=== PATIENT | male | born 1945 | race Caucasian/White ===

== ENCOUNTER 2017-12-08 08:00 | Emergency (ER) | payer MEDICARE ==
[2017-12-08 08:06] VITALS: BP 139/74; PULSE 81; RESP 20; TEMP 98; O2SAT 97; BMI 23.3
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
== END 2017-12-08 09:23 | disposition home or self-care (01) ==
LOC: H.ER 08:00 → EDBD 08:00 → H.ER 09:23
DX: T83.098A Other mechanical complication of other urinary catheter, initial encounter (principal); F41.9 Anxiety disorder, unspecified; I12.9 Hypertensive chronic kidney disease with stage 1 through stage 4 chronic kidney disease, or unspecified chronic kidney disease; N18.9 Chronic kidney disease, unspecified; Z79.82 Long term (current) use of aspirin

== ENCOUNTER 2018-05-06 07:36 | Inpatient (IN) | payer MEDICARE ==
[2018-05-06 07:54] VITALS: BMI 22.9
[2018-05-06] MEDS ORDERED: Sodium Chloride 0.9% 1,000 ML IV STA (08:22)
[2018-05-06 08:44] LABS: BASO # 0.1 K/uL (0.0-0.2); BASO % 0.8 % (0.0-2.0); EOS # 0.1 K/uL (0.0-0.7); EOS % 0.7 % (0.0-4.0); HEMOGLOBIN 14.5 g/dL (12.0-18.0); LYMPH # 1.5 K/uL (1.0-4.3); LYMPH % 9.5 % (20.0-40.0); MEAN CELL VOLUME 89.7 fl (80.0-94.0); MEAN CORPUSCULAR HEMOGLOBIN 30.2 pg (27.0-31.0); MEAN CORPUSCULAR HGB CONC 33.7 g/dL (33.0-37.0); MEAN PLATELET VOLUME 7.8 fl (7.2-11.7); MONO % 6.2 % (0.0-10.0); NEUT # 12.8 K/uL (1.8-7.0); NEUT % 82.8 % (50.0-75.0); PLATELET COUNT 343 K/uL (130-400); RED CELL DISTRIBUTION WIDTH 14.2 % (11.5-14.5); WHITE BLOOD COUNT 15.5 K/uL (4.8-10.8)
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
[2018-05-06 08:55] LABS: INR 1.1 (0.9-1.2); PARTIAL THROMBOPLASTIN TIME 29.4 Seconds (25.6-37.1); PROTHROMBIN TIME 11.9 Seconds (9.8-13.1)
[2018-05-06 08:57] LABS: ALB/GLOB RATIO 1.1 (1.0-2.1); ALT/SGPT 33 U/L (21-72); AST/SGOT 27 U/L (17-59); BLOOD UREA NITROGEN 20 mg/dl (9-20); CALCIUM 9.1 mg/dL (8.4-10.2); GFR AFRICAN-AMERICAN > 60; GFR NON-AFRICAN AMERICAN > 60
[2018-05-06 11:04] LABS: BANDS 2 % (0-2); EOSINOPHIL 1 % (0-7); LYMPHOCYTE 11 % (20-50); MONOCYTE 6 % (0-10); NEUTROPHIL 80 % (42-75); TOTAL CELLS COUNTED 100
[2018-05-06 11:05] LABS: ANISOCYTOSIS SLIGHT; PLATELET ESTIMATE NORMAL (NORMAL)
--- NOTE | 2018-05-06 11:48 | RAD ---
HISTORY: cough COMPARISON: Portable chest 08/30/2008 TECHNIQUE: AP frontal and a sitting cross table lateral view of the chest have been submitted. FINDINGS: LUNGS: No active pulmonary disease. PLEURA: No significant pleural effusion identified. No pneumothorax apparent. CARDIOVASCULAR: Cardiac silhouette appears stable. There is no pulmonary vascular derangement. OSSEOUS STRUCTURES: Calcific density inferior to the left costosternal junction is accentuated due to rotation. VISUALIZED UPPER ABDOMEN: Normal. OTHER FINDINGS: None. IMPRESSION: No interval acute cardiopulmonary disease appreciable.
[2018-05-06] MEDS ORDERED: Aspirin 325 mg EC Tablets PO ONE (13:32)
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
--- NOTE | 2018-05-06 15:59 | CARD ---
APPROVED REPORT EKG Measurement Heart [id number] <Conclusion> Sinus rhythm with frequent premature ventricular complexes Septal infarct, age undetermined T wave abnormality, consider anterolateral ischemia Abnormal ECG
--- NOTE | 2018-05-06 16:05 | CARD ---
APPROVED REPORT EKG Measurement Heart [id number] <Conclusion> Sinus rhythm with occasional premature ventricular complexes Possible Left atrial enlargement Septal infarct, age undetermined Abnormal ECG
[2018-05-06] MEDS ORDERED: Sodium Chloride 3% for Inhalation 4 ML VIAL.NEB IH PRN (17:56)
[2018-05-06] MEDS ORDERED: guaiFENesin 100 mg/5 ml Syrup UD PO PRN (19:00)
[2018-05-06 19:19] LABS: URINE BACTERIA RARE (<OCC); URINE BILIRUBIN NEGATIVE (NEGATIVE); URINE BLOOD SMALL (NEGATIVE); URINE CLARITY CLEAR (Clear); URINE COLOR STRAW (YELLOW); URINE GLUCOSE (UA) NEG (Normal); URINE LEUKOCYTE ESTERASE MOD Leu/uL (Negative); URINE PROTEIN NEGATIVE (NEGATIVE); URINE UROBILINOGEN 0.2-1.0 mg/dL (0.2-1.0)
[2018-05-07 07:36] LABS: BASO % 0.4 % (0.0-2.0); EOS # 0.1 K/uL (0.0-0.7); EOS % 0.5 % (0.0-4.0); HEMOGLOBIN 13.7 g/dL (12.0-18.0); LYMPH # 1.3 K/uL (1.0-4.3); LYMPH % 8.9 % (20.0-40.0); MEAN CELL VOLUME 90.8 fl (80.0-94.0); MEAN CORPUSCULAR HEMOGLOBIN 30.1 pg (27.0-31.0); MEAN CORPUSCULAR HGB CONC 33.2 g/dL (33.0-37.0); MONO % 7.2 % (0.0-10.0); NEUT # 11.7 K/uL (1.8-7.0); RBC 4.55 Mil/uL (4.40-5.90); RED CELL DISTRIBUTION WIDTH 14.2 % (11.5-14.5)
[2018-05-07 07:48] LABS: B-TYPE NATRIURETIC PEPTIDE 868 pg/ml (0-900)
[2018-05-07 07:59] LABS: ALBUMIN 3.4 g/dL (3.5-5.0); ALT/SGPT 30 U/L (21-72); AST/SGOT 44 U/L (17-59); BLOOD UREA NITROGEN 10 mg/dl (9-20); CALCIUM 8.8 mg/dL (8.4-10.2); GFR AFRICAN-AMERICAN > 60; GFR NON-AFRICAN AMERICAN > 60
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
--- NOTE | 2018-05-07 13:18 | CT ---
PROCEDURE: CT Chest without contrast HISTORY: blood tinged sputum, h/o dementia COMPARISON: None. TECHNIQUE: Contiguous axial images were obtained through the chest without intravenous contrast enhancement. Sagittal and coronal reconstructions were performed. Radiation dose (DLP): 212.47 mGy-cm. This CT exam was performed using one or more of the following dose reduction techniques: Automated exposure control, adjustment of the mA and/or kV according to patient size, and/or use of iterative reconstruction technique. FINDINGS: LUNGS: No infiltrate is appreciated. A large calcified granuloma seen the left apex measure 1.8 x 1.4 cm, pleural-based. 4.5 mm calcified granuloma seen the right lower lobe approaching the costophrenic sulcus laterally. Mucoid material is identified the inferior trachea toward the right partially aerated. MEDIASTINUM: Unremarkable thoracic aorta. No aneurysm. Mild cardiomegaly is noted with extensive coronary artery calcifications. Main pulmonary artery unremarkable. No vascular congestion. No lymphadenopathy. PLEURA: No pleural fluid. No pneumothorax. BONES: Old healed posterior left rib fractures at the left 6th, 7th, 8th and 9th ribs. UPPER ABDOMEN: Cholelithiasis. OTHER FINDINGS: None. IMPRESSION: 1. 1.8 cm left upper lobe granuloma is identified as well as a 4.5 mm granuloma in the right lower lobe, both calcified heavily. No additional parenchymal nodule appreciated bilaterally. No significant lymphadenopathy. 2. Limited mucoid material is seen at the inferior trachea toward the right with a small asymmetry at the upper trachea towards the right, appearing bandlike and nonspecific in origin. Consider bronchoscopy for follow-up. 3. No acute infiltrate, pleural or pericardial effusion or pneumothorax bilaterally. 4. Incidental cholelithiasis noted in right upper quadrant abdomen.
[2018-05-08] MEDS ORDERED: oxyCODONE 10 mg Immediate Release Tab PO PRN (01:11)
[2018-05-08] MEDS ORDERED: oxyCODONE 10 mg Immediate Release Tab PO ONE (01:14)
[2018-05-08 07:39] LABS: BASO # 0.1 K/uL (0.0-0.2); BASO % 0.6 % (0.0-2.0); EOS # 0.1 K/uL (0.0-0.7); EOS % 0.6 % (0.0-4.0); HEMOGLOBIN 14.4 g/dL (12.0-18.0); LYMPH % 9.8 % (20.0-40.0); MEAN CELL VOLUME 89.8 fl (80.0-94.0); MEAN CORPUSCULAR HEMOGLOBIN 29.7 pg (27.0-31.0); MEAN PLATELET VOLUME 8.5 fl (7.2-11.7); MONO # 1.3 K/uL (0.0-0.8); MONO % 6.5 % (0.0-10.0); NEUT # 16.8 K/uL (1.8-7.0); NEUT % 82.5 % (50.0-75.0); NRBC % 0.1 % (0.0-0.0); RBC 4.87 Mil/uL (4.40-5.90); RED CELL DISTRIBUTION WIDTH 14.2 % (11.5-14.5); WHITE BLOOD COUNT 20.3 K/uL (4.8-10.8)
[2018-05-08 08:02] LABS: ALBUMIN 3.8 g/dL (3.5-5.0); ALT/SGPT 41 U/L (21-72); AST/SGOT 27 U/L (17-59); BLOOD UREA NITROGEN 21 mg/dl (9-20); CALCIUM 9.1 mg/dL (8.4-10.2); GFR AFRICAN-AMERICAN > 60; GFR NON-AFRICAN AMERICAN > 60
[2018-05-08] MEDS ORDERED: Enoxaparin 40 mg Syringe SC SCH (09:00)
--- NOTE | 2018-05-08 10:32 | RAD ---
PROCEDURE: Radiographs of the Lumbar Spine. HISTORY: back pain, unalleviated by medication COMPARISON: No prior. FINDINGS: BONES: Osteopenia. Normal alignment. No listhesis. No fracture. DISC SPACES: Unremarkable. OTHER FINDINGS: Left lower quadrant ostomy. IMPRESSION: Diffuse osteopenia. No definite tract.
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
[2018-05-08] MEDS ORDERED: Sodium Chloride 0.9% 1,000 ML IV SCH (14:00)
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
[2018-05-08 14:30] LABS: HEMOGLOBIN 12.7 g/dL (12.0-18.0); MEAN CELL VOLUME 89.5 fl (80.0-94.0); MEAN CORPUSCULAR HGB CONC 33.6 g/dL (33.0-37.0); RBC 4.22 Mil/uL (4.40-5.90); RED CELL DISTRIBUTION WIDTH 14.2 % (11.5-14.5); WHITE BLOOD COUNT 20.6 K/uL (4.8-10.8)
[2018-05-08 14:44] LABS: INR 1.2 (0.9-1.2); PARTIAL THROMBOPLASTIN TIME 21.5 Seconds (25.6-37.1); PROTHROMBIN TIME 13.5 Seconds (9.8-13.1)
[2018-05-08 14:45] LABS: ALBUMIN 3.3 g/dL (3.5-5.0); ALT/SGPT 32 U/L (21-72); AST/SGOT 23 U/L (17-59); BLOOD UREA NITROGEN 27 mg/dl (9-20); CALCIUM 8.3 mg/dL (8.4-10.2); GFR AFRICAN-AMERICAN > 60; GFR NON-AFRICAN AMERICAN > 60
[2018-05-08] MEDS: Pantoprazole 40 MG in Sodium Chloride 0.9% 100 ML IVPB SCH ×2 (15:21→20:32)
[2018-05-08] MEDS: Piperacillin/Tazobact 3.375 GM in Sodium Chloride 0.9% 100 ML IVPB SCH ×2 (16:31→22:32)
[2018-05-08] MEDS: levoFLOXacin 500 mg in D5W 500 MG/100 ML BAG IVPB SCH (16:59)
[2018-05-08] MEDS: Potassium Chl 20 mEq in NS 1,000 ML IV SCH (17:38)
--- NOTE | 2018-05-08 18:09 | CP.PCM.PCO ---
Addendum entered and electronically signed by Tess Bermudez MD 05/08/18 18: 51: Pt had another episode of coffee ground emesis, continue to have melena. Zofran ordered. Protonix drip is running, pt is NPO. Repeat labs : CBC, BMP, Procalcitonin and Lactic Acid . Original Note: <Tess Bermudez - Last Filed: 05/08/18 18:51> Addendum Addendum: 05/08/18 18:06 GI consult placed- Dr. Muse, case discussed. Will see patient. Patient sitting upright in bed. Alert. Had 2 more episodes of coffee ground emesis since arrival in ICU. Vital signs are stable. Started on IV Abx - Levaquin and Zosyn due to Leukocytosis and High lactate: 4.5 and possible aspiration. Will Repeat CXR. Repeat Procalcitonin. CBC q6 Repeat Lactate at 20:00. Case d/w Dr. Garay. Await rec's from GI. Aidan PGY2 <Otilia Trent - Last Filed: 05/09/18 07:14> Physician Communication Note - Physician Communication Note Physician Communication Note: Epsisode reported and discussed. Agree with plan.
--- NOTE | 2018-05-08 18:10 | RAD ---
HISTORY: poss aspiration COMPARISON: Chest radiograph dated 05/06/2018. FINDINGS: LUNGS: No active pulmonary disease. PLEURA: No significant pleural effusion identified, no pneumothorax apparent. CARDIOVASCULAR: Atherosclerotic aortic calcifications. Cardiomediastinal silhouette stably prominent. OSSEOUS STRUCTURES: Unchanged. VISUALIZED UPPER ABDOMEN: Normal. OTHER FINDINGS: None. IMPRESSION: No active disease.
[2018-05-08 19:14] LABS: BASO # 0.1 K/uL (0.0-0.2); BASO % 0.3 % (0.0-2.0); EOS % 0.1 % (0.0-4.0); LYMPH % 6.5 % (20.0-40.0); MEAN CELL VOLUME 89.6 fl (80.0-94.0); MEAN CORPUSCULAR HEMOGLOBIN 29.8 pg (27.0-31.0); MEAN CORPUSCULAR HGB CONC 33.3 g/dL (33.0-37.0); MEAN PLATELET VOLUME 7.8 fl (7.2-11.7); MONO # 0.9 K/uL (0.0-0.8); MONO % 5.6 % (0.0-10.0); NEUT % 87.5 % (50.0-75.0); RBC 3.6 Mil/uL (4.40-5.90); RED CELL DISTRIBUTION WIDTH 13.8 % (11.5-14.5); WHITE BLOOD COUNT 15.9 K/uL (4.8-10.8)
[2018-05-08 19:17] LABS: HEMOGLOBIN 10.7 g/dL (12.0-18.0)
[2018-05-08 19:24] LABS: BLOOD UREA NITROGEN 29 mg/dl (9-20); CALCIUM 7.4 mg/dL (8.4-10.2); GFR AFRICAN-AMERICAN > 60; GFR NON-AFRICAN AMERICAN > 60
[2018-05-08] MEDS ORDERED: Trimethobenzamide 200 mg/2 mL Inj IM ONE (20:25)
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
[2018-05-09] MEDS: Pantoprazole 40 MG in Sodium Chloride 0.9% 100 ML IVPB SCH ×5 (01:36→22:42)
[2018-05-09 01:50] LABS: HEMOGLOBIN 10.7 g/dL (12.0-18.0); MEAN CELL VOLUME 90.3 fl (80.0-94.0); MEAN CORPUSCULAR HEMOGLOBIN 29.7 pg (27.0-31.0); MEAN CORPUSCULAR HGB CONC 32.9 g/dL (33.0-37.0); RBC 3.62 Mil/uL (4.40-5.90); WHITE BLOOD COUNT 15.1 K/uL (4.8-10.8)
[2018-05-09] MEDS: Piperacillin/Tazobact 3.375 GM in Sodium Chloride 0.9% 100 ML IVPB SCH ×4 (04:19→21:01)
[2018-05-09] MEDS: Potassium Chl 20 mEq in NS 1,000 ML IV SCH (05:59)
[2018-05-09 06:02] LABS: BASO # 0.1 K/uL (0.0-0.2); BASO % 0.7 % (0.0-2.0); EOS # 0.1 K/uL (0.0-0.7); EOS % 0.7 % (0.0-4.0); HEMOGLOBIN 10.8 g/dL (12.0-18.0); LYMPH # 1.9 K/uL (1.0-4.3); LYMPH % 15.1 % (20.0-40.0); MEAN CELL VOLUME 90.7 fl (80.0-94.0); MEAN CORPUSCULAR HEMOGLOBIN 29.9 pg (27.0-31.0); MEAN PLATELET VOLUME 8.2 fl (7.2-11.7); NEUT # 9.4 K/uL (1.8-7.0); NEUT % 75.5 % (50.0-75.0); NRBC % 0.1 % (0.0-0.0); RBC 3.6 Mil/uL (4.40-5.90); RED CELL DISTRIBUTION WIDTH 14.4 % (11.5-14.5); WHITE BLOOD COUNT 12.5 K/uL (4.8-10.8)
[2018-05-09 06:18] LABS: ALB/GLOB RATIO 0.9 (1.0-2.1); ALBUMIN 2.6 g/dL (3.5-5.0); ALT/SGPT 35 U/L (21-72); AST/SGOT 27 U/L (17-59); BLOOD UREA NITROGEN 30 mg/dl (9-20); CALCIUM 7.5 mg/dL (8.4-10.2); GFR AFRICAN-AMERICAN > 60; GFR NON-AFRICAN AMERICAN > 60
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
[2018-05-09] MEDS: levoFLOXacin 500 mg in D5W 500 MG/100 ML BAG IVPB SCH (08:22)
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
[2018-05-09] MEDS ORDERED: Propofol 10 mg/ml Inj (20 ML) ONE (11:49)
[2018-05-09] MEDS ORDERED: Sodium Chloride 0.9% 250 ML IV ONE (11:57)
[2018-05-09] MEDS: Clindamycin 600mg/50ml D5W 600 MG/50 ML VIAL IVPB SCH (17:39)
[2018-05-09] MEDS ORDERED: Sodium Chloride 0.9% 1,000 ML IV SCH (21:00)
[2018-05-10] MEDS: Clindamycin 600mg/50ml D5W 600 MG/50 ML VIAL IVPB SCH ×3 (00:31→17:36)
[2018-05-10] MEDS: Piperacillin/Tazobact 3.375 GM in Sodium Chloride 0.9% 100 ML IVPB SCH ×4 (03:28→22:20)
[2018-05-10] MEDS: Pantoprazole 40 MG in Sodium Chloride 0.9% 100 ML IVPB SCH ×4 (03:29→20:36)
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
[2018-05-10 05:33] LABS: BASO # 0.1 K/uL (0.0-0.2); BASO % 0.2 % (0.0-2.0); EOS # 0.3 K/uL (0.0-0.7); EOS % 1.1 % (0.0-4.0); HEMOGLOBIN 11.2 g/dL (12.0-18.0); LYMPH # 0.6 K/uL (1.0-4.3); LYMPH % 2.2 % (20.0-40.0); MEAN CELL VOLUME 91.1 fl (80.0-94.0); MEAN CORPUSCULAR HEMOGLOBIN 29.9 pg (27.0-31.0); MEAN CORPUSCULAR HGB CONC 32.8 g/dL (33.0-37.0); MEAN PLATELET VOLUME 8.1 fl (7.2-11.7); MONO % 3.7 % (0.0-10.0); NEUT # 24.3 K/uL (1.8-7.0); NEUT % 92.8 % (50.0-75.0); PLATELET COUNT 287 K/uL (130-400); RBC 3.76 Mil/uL (4.40-5.90); RED CELL DISTRIBUTION WIDTH 14.5 % (11.5-14.5); WHITE BLOOD COUNT 26.2 K/uL (4.8-10.8)
[2018-05-10 05:51] LABS: ALB/GLOB RATIO 0.9 (1.0-2.1); ALT/SGPT 41 U/L (21-72); AST/SGOT 25 U/L (17-59); BLOOD UREA NITROGEN 12 mg/dl (9-20); CALCIUM 8.5 mg/dL (8.4-10.2); GFR AFRICAN-AMERICAN > 60; GFR NON-AFRICAN AMERICAN > 60
[2018-05-10 07:06] LABS: BANDS 1 % (0-2); BASOPHIL 1 % (0-2); EOSINOPHIL 1 % (0-7); LYMPHOCYTE 2 % (20-50); MONOCYTE 2 % (0-10); NEUTROPHIL 93 % (42-75); TOTAL CELLS COUNTED 100
[2018-05-10 07:07] LABS: PLATELET ESTIMATE NORMAL (NORMAL)
[2018-05-10] MEDS: levoFLOXacin 500 mg in D5W 500 MG/100 ML BAG IVPB SCH (08:17)
--- NOTE | 2018-05-10 08:24 | CP.PCM.PN ---
Subjective - Date & Time of Evaluation Date of Evaluation: 05/10/18 Time of Evaluation: 08:20 - Subjective Subjective: Awake and comfortable. no overt bleeding. Objective - Vital Signs/Intake and Output Vital Signs (last 24 hours): Temp Pulse Resp BP Pulse Ox 97.7 F 96 H 24 100/53 L 99 05/10/18 04:00 05/10/18 06:00 05/10/18 06:00 05/10/18 06:00 05/10/18 06:00 Intake and Output: 05/10/18 05/10/18 06:59 18:59 Intake Total 1530 Output Total 3800 Balance -2270 - Medications Medications: Current Medications Acetaminophen (Tylenol 650 Mg Supp) 650 mg [place] Q6 PRN PRN Reason: Fever >100.4 F Pantoprazole Sodium 40 mg/ (Sodium Chloride) 100 mls @ 20 mls/hr IVPB Q5H KALYANI PRN Reason: 8 MG/HR Last Admin: 05/10/18 03:29 Dose: 20 mls/hr Piperacillin Sod/Tazobactam (Sod 3.375 gm/ Sodium Chloride) 100 mls @ 100 mls/ hr IVPB Q6 KALYANI PRN Reason: Protocol Last Admin: 05/10/18 03:28 Dose: 100 mls/hr Levofloxacin/Dextrose (Levaquin 500mg) 500 mg in 100 mls @ 100 mls/hr IVPB DAILY KALYANI PRN Reason: Protocol Last Admin: 05/10/18 08:17 Dose: 100 mls/hr Clindamycin Phosphate (Cleocin) 600 mg in 50 mls @ 50 mls/hr IVPB Q8 KALYANI PRN Reason: Protocol Last Admin: 05/10/18 08:16 Dose: 50 mls/hr Ondansetron HCl (Zofran Inj) 4 mg IVP Q4 PRN PRN Reason: Nausea/Vomiting Last Admin: 05/08/18 18:51 Dose: 4 mg - Labs Labs: 05/10/18 04:45 05/10/18 04:45 PT 13.5 Seconds (9.8-13.1) H 05/08/18 14:15 INR 1.2 (0.9-1.2) 05/08/18 14:15 APTT 21.5 Seconds (25.6-37.1) L D 05/08/18 14:15 - Head Exam Head Exam: ATRAUMATIC - Eye Exam Eye Exam: Normal appearance - Neck Exam Neck Exam: Full ROM - Respiratory Exam Respiratory Exam: NORMAL BREATHING PATTERN - Cardiovascular Exam Cardiovascular Exam: REGULAR RHYTHM - GI/Abdominal Exam GI & Abdominal Exam: Soft, Normal Bowel Sounds. absent: Tenderness Assessment and Plan (1) GI bleeding Assessment & Plan: No active bleeding currently. Will advance to full liquids. Maintain current pantoprazole infusion. Follow Hgb and clinically for evidence of bleeding. Status: Acute
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
--- NOTE | 2018-05-10 10:33 | CP.PCM.PN ---
Subjective - Date & Time of Evaluation Date of Evaluation: 05/10/18 Time of Evaluation: 10:29 - Subjective Subjective: Interim events reviewed in the EMR. Presently lying in bed, complaining of pain in his feet. No further coughing, no SOB, no chest discomfort. Discussed findings on the CT scan with his niece who is his POA. Plan for flexible bronchoscopy later this week to evaluate the airways abnormalities seen on CT. Consent has been obtained after explaining the reason for the procedure and the possible complications. Objective - Vital Signs/Intake and Output Vital Signs (last 24 hours): Temp Pulse Resp BP Pulse Ox 98.2 F 99 H 28 H 94/54 L 100 05/10/18 08:00 05/10/18 10:00 05/10/18 10:00 05/10/18 10:00 05/10/18 10:00 Intake and Output: 05/09/18 05/10/18 23:59 11:59 Intake Total 19890 Output Total 1550 3800 Balance 440 -1720 - Medications Medications: Current Medications Acetaminophen (Tylenol 650 Mg Supp) 650 mg [place] Q6 PRN PRN Reason: Fever >100.4 F Pantoprazole Sodium 40 mg/ (Sodium Chloride) 100 mls @ 20 mls/hr IVPB Q5H KALYANI PRN Reason: 8 MG/HR Last Admin: 05/10/18 03:29 Dose: 20 mls/hr Piperacillin Sod/Tazobactam (Sod 3.375 gm/ Sodium Chloride) 100 mls @ 100 mls/ hr IVPB Q6 KALYANI PRN Reason: Protocol Last Admin: 05/10/18 09:05 Dose: 100 mls/hr Levofloxacin/Dextrose (Levaquin 500mg) 500 mg in 100 mls @ 100 mls/hr IVPB DAILY KALYANI PRN Reason: Protocol Last Admin: 05/10/18 08:17 Dose: 100 mls/hr Clindamycin Phosphate (Cleocin) 600 mg in 50 mls @ 50 mls/hr IVPB Q8 KALYANI PRN Reason: Protocol Last Admin: 05/10/18 08:16 Dose: 50 mls/hr Ondansetron HCl (Zofran Inj) 4 mg IVP Q4 PRN PRN Reason: Nausea/Vomiting Last Admin: 05/08/18 18:51 Dose: 4 mg - Labs Labs: 05/10/18 04:45 05/10/18 04:45 PT 13.5 Seconds (9.8-13.1) H 05/08/18 14:15 INR 1.2 (0.9-1.2) 05/08/18 14:15 APTT 21.5 Seconds (25.6-37.1) L D 05/08/18 14:15
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
[2018-05-11] MEDS: Clindamycin 600mg/50ml D5W 600 MG/50 ML VIAL IVPB SCH ×3 (00:05→18:20)
[2018-05-11] MEDS: Pantoprazole 40 MG in Sodium Chloride 0.9% 100 ML IVPB SCH ×2 (01:07→06:17)
[2018-05-11] MEDS: Piperacillin/Tazobact 3.375 GM in Sodium Chloride 0.9% 100 ML IVPB SCH ×4 (03:38→21:32)
--- NOTE | 2018-05-11 08:40 | CP.PCM.PN ---
Subjective - Date & Time of Evaluation Date of Evaluation: 05/11/18 Time of Evaluation: 08:37 - Subjective Subjective: Patient is awake and alert. No evidence of bleeding. Objective - Vital Signs/Intake and Output Vital Signs (last 24 hours): Temp Pulse Resp BP Pulse Ox 98.4 F 73 18 94/55 L 98 05/11/18 08:32 05/11/18 08:32 05/11/18 08:32 05/11/18 08:32 05/11/18 08:32 Intake and Output: 05/11/18 05/11/18 06:59 18:59 Intake Total 150 Balance 150 - Medications Medications: Current Medications Acetaminophen (Tylenol 650 Mg Supp) 650 mg [place] Q6 PRN PRN Reason: Fever >100.4 F Piperacillin Sod/Tazobactam (Sod 3.375 gm/ Sodium Chloride) 100 mls @ 100 mls/ hr IVPB Q6 KALYANI PRN Reason: Protocol Last Admin: 05/11/18 03:38 Dose: 100 mls/hr Clindamycin Phosphate (Cleocin) 600 mg in 50 mls @ 50 mls/hr IVPB Q8 KALYANI PRN Reason: Protocol Last Admin: 05/11/18 00:05 Dose: 50 mls/hr Sodium Chloride (Sodium Chloride 0.9%) 1,000 mls @ 100 mls/hr IV .Q10H [facility] Stop: 05/12/18 08:14 Ondansetron HCl (Zofran Inj) 4 mg IVP Q4 PRN PRN Reason: Nausea/Vomiting Last Admin: 05/08/18 18:51 Dose: 4 mg Pantoprazole Sodium (Protonix Inj) 40 mg IVP BID KALYANI - Labs Labs: 05/10/18 04:45 05/10/18 04:45 PT 13.5 Seconds (9.8-13.1) H 05/08/18 14:15 INR 1.2 (0.9-1.2) 05/08/18 14:15 APTT 21.5 Seconds (25.6-37.1) L D 05/08/18 14:15 - Head Exam Head Exam: ATRAUMATIC - Eye Exam Eye Exam: Normal appearance - ENT Exam ENT Exam: Normal Exam - Neck Exam Neck Exam: Full ROM - Respiratory Exam Respiratory Exam: NORMAL BREATHING PATTERN - Cardiovascular Exam Cardiovascular Exam: REGULAR RHYTHM, +S1, +S2 - GI/Abdominal Exam GI & Abdominal Exam: Soft. absent: Tenderness Assessment and Plan (1) GI bleeding Assessment & Plan: Clinically doing well from GI perspective with no evidence of bleeding. CBC from today not yet available. Pantoprazole changed to 40 mg IV BID. Advanced to soft diet. Status: Acute
--- NOTE | 2018-05-11 09:00 | CP.PCM.PN ---
Subjective - Date & Time of Evaluation Date of Evaluation: 05/11/18 Time of Evaluation: 08:56 - Subjective Subjective: Preceeding note from GI reviewed. Case discussed with GI this morning. Vital signs are okay, remains afebrile. Abrupt increase in WBC to 26 this morning. Able to follow simple commands, dry cough when prompted. No dyspnea or cough noted. Breath sounds are present bilaterally, diminished. Slight harsh character to BS in LLL posteriorly. No audible wheezes, few scattered rhonchi. Heart sounds are distant, regular rhythm. Chest x-ray requested for this morning. Tentative for [facility] Wednesday morning. Objective - Vital Signs/Intake and Output Vital Signs (last 24 hours): Temp Pulse Resp BP Pulse Ox 98.4 F 73 18 94/55 L 98 05/11/18 08:32 05/11/18 08:32 05/11/18 08:32 05/11/18 08:32 05/11/18 08:32 Intake and Output: 05/10/18 05/11/18 23:59 11:59 Intake Total 700 50 Output Total 200 Balance 500 50 - Medications Medications: Current Medications Acetaminophen (Tylenol 650 Mg Supp) 650 mg [place] Q6 PRN PRN Reason: Fever >100.4 F Piperacillin Sod/Tazobactam (Sod 3.375 gm/ Sodium Chloride) 100 mls @ 100 mls/ hr IVPB Q6 KALYANI PRN Reason: Protocol Last Admin: 05/11/18 03:38 Dose: 100 mls/hr Clindamycin Phosphate (Cleocin) 600 mg in 50 mls @ 50 mls/hr IVPB Q8 KALYANI PRN Reason: Protocol Last Admin: 05/11/18 00:05 Dose: 50 mls/hr Sodium Chloride (Sodium Chloride 0.9%) 1,000 mls @ 100 mls/hr IV .Q10H KALYANI Stop: 05/12/18 08:14 Ondansetron HCl (Zofran Inj) 4 mg IVP Q4 PRN PRN Reason: Nausea/Vomiting Last Admin: 05/08/18 18:51 Dose: 4 mg Pantoprazole Sodium (Protonix Inj) 40 mg IVP BID KALYANI - Labs Labs: 05/10/18 04:45 05/10/18 04:45 PT 13.5 Seconds (9.8-13.1) H 05/08/18 14:15 INR 1.2 (0.9-1.2) 05/08/18 14:15 APTT 21.5 Seconds (25.6-37.1) L D 05/08/18 14:15
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
[2018-05-11] MEDS: Sodium Chloride 0.9% 1,000 ML IV SCH (10:04)
--- NOTE | 2018-05-11 13:27 | RAD ---
HISTORY: cough COMPARISON: Chest radiograph dated 05/08/2018. FINDINGS: LUNGS: No active pulmonary disease. Small right basilar calcified granuloma redemonstrated. PLEURA: No significant pleural effusion identified, no pneumothorax apparent. CARDIOVASCULAR: Atherosclerotic aortic calcifications. Cardiomediastinal silhouette stably prominent. OSSEOUS STRUCTURES: Changed. VISUALIZED UPPER ABDOMEN: Normal. OTHER FINDINGS: None. IMPRESSION: No active disease.
[2018-05-12] MEDS: Clindamycin 600mg/50ml D5W 600 MG/50 ML VIAL IVPB SCH ×3 (00:16→18:09)
[2018-05-12] MEDS: Piperacillin/Tazobact 3.375 GM in Sodium Chloride 0.9% 100 ML IVPB SCH ×4 (04:35→22:45)
[2018-05-12] MEDS: Sodium Chloride 0.9% 1,000 ML IV SCH (04:36)
[2018-05-12] MEDS ORDERED: Oxycodone/Acetaminophen 5/325 mg Tab PO PRN (07:45)
[2018-05-12 09:15] LABS: BASO # 0.1 K/uL (0.0-0.2); BASO % 0.4 % (0.0-2.0); EOS # 0.4 K/uL (0.0-0.7); EOS % 2.4 % (0.0-4.0); HEMOGLOBIN 9.4 g/dL (12.0-18.0); LYMPH # 1.4 K/uL (1.0-4.3); LYMPH % 8.1 % (20.0-40.0); MEAN CELL VOLUME 89.5 fl (80.0-94.0); MEAN CORPUSCULAR HEMOGLOBIN 30.3 pg (27.0-31.0); MEAN CORPUSCULAR HGB CONC 33.8 g/dL (33.0-37.0); MEAN PLATELET VOLUME 7.4 fl (7.2-11.7); MONO # 1.1 K/uL (0.0-0.8); MONO % 6.6 % (0.0-10.0); NEUT # 14.2 K/uL (1.8-7.0); NEUT % 82.5 % (50.0-75.0); RBC 3.11 Mil/uL (4.40-5.90); RED CELL DISTRIBUTION WIDTH 14.6 % (11.5-14.5); WHITE BLOOD COUNT 17.2 K/uL (4.8-10.8)
[2018-05-12 09:40] LABS: ALB/GLOB RATIO 0.9 (1.0-2.1); ALBUMIN 2.7 g/dL (3.5-5.0); ALT/SGPT 30 U/L (21-72); AST/SGOT 21 U/L (17-59); BLOOD UREA NITROGEN 7 mg/dl (9-20); CALCIUM 7.6 mg/dL (8.4-10.2); GFR AFRICAN-AMERICAN > 60; GFR NON-AFRICAN AMERICAN > 60
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
--- NOTE | 2018-05-12 14:54 | CP.PCM.PN ---
Subjective - Date & Time of Evaluation Date of Evaluation: 05/12/18 Time of Evaluation: 14:52 - Subjective Subjective: Patient is scheduled for flexible bronchoscopy tomorrow AM. Consent has already been signed by PODylon and is in the paper chart. He has remained asymptomatic w/o any cough or SOB. Objective - Vital Signs/Intake and Output Vital Signs (last 24 hours): Temp Pulse Resp BP Pulse Ox 97.9 F 78 18 123/69 99 05/12/18 08:20 05/12/18 08:20 05/12/18 08:20 05/12/18 08:20 05/12/18 08:20 - Medications Medications: Current Medications Acetaminophen (Tylenol 650 Mg Supp) 650 mg [place] Q6 PRN PRN Reason: Fever >100.4 F Piperacillin Sod/Tazobactam (Sod 3.375 gm/ Sodium Chloride) 100 mls @ 100 mls/ hr IVPB Q6 KALYANI PRN Reason: Protocol Last Admin: 05/12/18 09:34 Dose: 100 mls/hr Clindamycin Phosphate (Cleocin) 600 mg in 50 mls @ 50 mls/hr IVPB Q8 KALYANI PRN Reason: Protocol Last Admin: 05/12/18 09:34 Dose: 50 mls/hr Ondansetron HCl (Zofran Inj) 4 mg IVP Q4 PRN PRN Reason: Nausea/Vomiting Last Admin: 05/08/18 18:51 Dose: 4 mg Oxycodone/Acetaminophen (Percocet 5/325 Mg Tab) 1 tab PO Q6 PRN PRN Reason: Pain, severe (8-10) Stop: 05/13/18 07:46 Pantoprazole Sodium (Protonix Inj) 40 mg IVP BID [facility] Last Admin: 05/12/18 09:35 Dose: 40 mg - Labs Labs: 05/12/18 09:00 05/12/18 09:00 PT 13.5 Seconds (9.8-13.1) H 05/08/18 14:15 INR 1.2 (0.9-1.2) 05/08/18 14:15 APTT 21.5 Seconds (25.6-37.1) L D 05/08/18 14:15
--- NOTE | 2018-05-12 20:36 | CP.PCM.PN ---
Subjective - Date & Time of Evaluation Date of Evaluation: 05/12/18 Time of Evaluation: 14:00 - Subjective Subjective: Patient appears comfortable. No complaints. Objective - Vital Signs/Intake and Output Vital Signs (last 24 hours): Temp Pulse Resp BP Pulse Ox 97.7 F 76 20 114/59 L 98 05/12/18 16:49 05/12/18 16:49 05/12/18 16:49 05/12/18 16:49 05/12/18 16:49 - Medications Medications: Current Medications Acetaminophen (Tylenol 650 Mg Supp) 650 mg [place] Q6 PRN PRN Reason: Fever >100.4 F Piperacillin Sod/Tazobactam (Sod 3.375 gm/ Sodium Chloride) 100 mls @ 100 mls/ hr IVPB Q6 KALYANI PRN Reason: Protocol Last Admin: 05/12/18 18:09 Dose: 100 mls/hr Clindamycin Phosphate (Cleocin) 600 mg in 50 mls @ 50 mls/hr IVPB Q8 KALYANI PRN Reason: Protocol Last Admin: 05/12/18 18:09 Dose: 50 mls/hr Ondansetron HCl (Zofran Inj) 4 mg IVP Q4 PRN PRN Reason: Nausea/Vomiting Last Admin: 05/08/18 18:51 Dose: 4 mg Oxycodone/Acetaminophen (Percocet 5/325 Mg Tab) 1 tab PO Q6 PRN PRN Reason: Pain, severe (8-10) Stop: 05/13/18 07:46 Pantoprazole Sodium (Protonix Inj) 40 mg IVP BID [facility] Last Admin: 05/12/18 18:21 Dose: 40 mg - Labs Labs: 05/12/18 09:00 05/12/18 09:00 PT 13.5 Seconds (9.8-13.1) H 05/08/18 14:15 INR 1.2 (0.9-1.2) 05/08/18 14:15 APTT 21.5 Seconds (25.6-37.1) L D 05/08/18 14:15 - Head Exam Head Exam: ATRAUMATIC - Neck Exam Neck Exam: Full ROM - Respiratory Exam Respiratory Exam: Clear to Ausculation Bilateral - Cardiovascular Exam Cardiovascular Exam: REGULAR RHYTHM - GI/Abdominal Exam GI & Abdominal Exam: Soft. absent: Tenderness Assessment and Plan (1) GI bleeding Assessment & Plan: No overt bleeding. Hgb is 9.4. WBC has declined to 17k. Continue IV protonix. Upper endoscopy Wednesday. Status: Acute
[2018-05-13] MEDS: Clindamycin 600mg/50ml D5W 600 MG/50 ML VIAL IVPB SCH ×3 (01:14→17:36)
[2018-05-13] MEDS: Piperacillin/Tazobact 3.375 GM in Sodium Chloride 0.9% 100 ML IVPB SCH ×4 (04:03→21:30)
[2018-05-13] MEDS ORDERED: Potassium Chl 40 mEq in D5-1/2 1,000 ML IV SCH (07:45)
[2018-05-13] MEDS ORDERED: Sodium Bicarbonate 7.5% (0.9 MEQ/ML) 50ML INJ IV ONE (07:47)
[2018-05-13] MEDS ORDERED: Potassium Chloride 20 mEq 100 ML IVPB ONE (07:48)
[2018-05-13] MEDS: Potassium Chloride 20 mEq 100 ML IVPB SCH ×2 (08:00→10:20)
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
[2018-05-13 10:17] LABS: BLOOD UREA NITROGEN 6 mg/dl (9-20); CALCIUM 7.8 mg/dL (8.4-10.2); GFR AFRICAN-AMERICAN > 60; GFR NON-AFRICAN AMERICAN > 60
[2018-05-13] MEDS ORDERED: Lidocaine 1% Inj (20ml) TP ONE (11:25)
[2018-05-13] MEDS ORDERED: Lactated Ringer's 500 ML IV ONE (11:25)
[2018-05-13] MEDS ORDERED: Midazolam 2 MG/2 ML VIAL ONE (11:26)
[2018-05-13] MEDS ORDERED: Propofol 10 mg/ml Inj (20 ML) ONE (11:26)
[2018-05-13] MEDS ORDERED: EPINEPHrine 1 mg/ml (1:1000) Inj IV ONE (11:40)
[2018-05-13] MEDS ORDERED: Lidocaine 2% GEL TOP ONE (11:40)
[2018-05-13] MEDS ORDERED: Sodium Chloride 0.9% 1,000 ML IV ONE (12:00)
[2018-05-13 14:54] LABS: HEMOGLOBIN 10.2 g/dL (12.0-18.0); MEAN CELL VOLUME 89.5 fl (80.0-94.0); MEAN CORPUSCULAR HEMOGLOBIN 29.6 pg (27.0-31.0); MEAN CORPUSCULAR HGB CONC 33.1 g/dL (33.0-37.0); RBC 3.45 Mil/uL (4.40-5.90); RED CELL DISTRIBUTION WIDTH 14.7 % (11.5-14.5); WHITE BLOOD COUNT 15.4 K/uL (4.8-10.8)
[2018-05-13 15:07] LABS: BLOOD UREA NITROGEN 5 mg/dl (9-20); CALCIUM 8.2 mg/dL (8.4-10.2); GFR AFRICAN-AMERICAN > 60; GFR NON-AFRICAN AMERICAN > 60
[2018-05-13 15:57] LABS: INR 1.2 (0.9-1.2); PARTIAL THROMBOPLASTIN TIME 26.9 Seconds (25.6-37.1); PROTHROMBIN TIME 13.6 Seconds (9.8-13.1)
[2018-05-14] MEDS: Clindamycin 600mg/50ml D5W 600 MG/50 ML VIAL IVPB SCH ×3 (00:22→16:56)
[2018-05-14] MEDS: Oxycodone/Acetaminophen 5/325 mg Tab PO PRN (01:23)
[2018-05-14] MEDS: Piperacillin/Tazobact 3.375 GM in Sodium Chloride 0.9% 100 ML IVPB SCH ×4 (04:38→22:23)
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
[2018-05-14 16:03] LABS: BASO # 0.1 K/uL (0.0-0.2); BASO % 0.5 % (0.0-2.0); EOS # 0.5 K/uL (0.0-0.7); EOS % 3.5 % (0.0-4.0); HEMOGLOBIN 9.8 g/dL (12.0-18.0); LYMPH # 1.8 K/uL (1.0-4.3); LYMPH % 13.5 % (20.0-40.0); MEAN CELL VOLUME 89.3 fl (80.0-94.0); MEAN CORPUSCULAR HEMOGLOBIN 29.7 pg (27.0-31.0); MEAN CORPUSCULAR HGB CONC 33.2 g/dL (33.0-37.0); MEAN PLATELET VOLUME 7.5 fl (7.2-11.7); MONO # 1.3 K/uL (0.0-0.8); MONO % 9.4 % (0.0-10.0); NEUT # 9.8 K/uL (1.8-7.0); NEUT % 73.1 % (50.0-75.0); RBC 3.3 Mil/uL (4.40-5.90); RED CELL DISTRIBUTION WIDTH 14.3 % (11.5-14.5); WHITE BLOOD COUNT 13.4 K/uL (4.8-10.8)
[2018-05-14 16:16] LABS: ALBUMIN 3.1 g/dL (3.5-5.0); ALT/SGPT 30 U/L (21-72); AST/SGOT 19 U/L (17-59); BLOOD UREA NITROGEN 9 mg/dl (9-20); GFR AFRICAN-AMERICAN > 60; GFR NON-AFRICAN AMERICAN > 60
[2018-05-14] MEDS ORDERED: Potassium CL 10 MEQ/50 ML 50 ML IVPB SCH (17:00)
[2018-05-14] MEDS: Potassium Chloride 20 mEq ER Tab PO SCH (17:02)
[2018-05-15] MEDS: Clindamycin 600mg/50ml D5W 600 MG/50 ML VIAL IVPB SCH ×3 (00:06→16:05)
[2018-05-15] MEDS: Piperacillin/Tazobact 3.375 GM in Sodium Chloride 0.9% 100 ML IVPB SCH ×4 (04:31→22:03)
[2018-05-15 07:02] LABS: BASO # 0.1 K/uL (0.0-0.2); BASO % 0.8 % (0.0-2.0); EOS # 0.5 K/uL (0.0-0.7); EOS % 3.8 % (0.0-4.0); HEMOGLOBIN 10.3 g/dL (12.0-18.0); LYMPH % 14.5 % (20.0-40.0); MEAN CELL VOLUME 89.5 fl (80.0-94.0); MEAN CORPUSCULAR HEMOGLOBIN 29.7 pg (27.0-31.0); MEAN CORPUSCULAR HGB CONC 33.1 g/dL (33.0-37.0); MONO # 1.3 K/uL (0.0-0.8); MONO % 9.5 % (0.0-10.0); NEUT % 71.4 % (50.0-75.0); NRBC % 0.1 % (0.0-0.0); RBC 3.46 Mil/uL (4.40-5.90); RED CELL DISTRIBUTION WIDTH 14.7 % (11.5-14.5)
[2018-05-15 07:23] LABS: ALBUMIN 3.1 g/dL (3.5-5.0); ALT/SGPT 30 U/L (21-72); AST/SGOT 22 U/L (17-59); BLOOD UREA NITROGEN 8 mg/dl (9-20); CALCIUM 8.4 mg/dL (8.4-10.2); GFR AFRICAN-AMERICAN > 60; GFR NON-AFRICAN AMERICAN > 60
[2018-05-15] MEDS: Potassium Chloride 20 mEq ER Tab PO SCH (08:57)
[2018-05-15] MEDS: Oxycodone/Acetaminophen 5/325 mg Tab PO PRN ×2 (11:14→20:50)
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
[2018-05-15] MEDS ORDERED: Sodium Chloride 0.9% 1,000 ML IV SCH (23:55)
[2018-05-16] MEDS: Clindamycin 600mg/50ml D5W 600 MG/50 ML VIAL IVPB SCH ×2 (00:10→08:56)
[2018-05-16] MEDS: Piperacillin/Tazobact 3.375 GM in Sodium Chloride 0.9% 100 ML IVPB SCH ×2 (04:03→10:28)
[2018-05-16 06:14] LABS: BASO # 0.1 K/uL (0.0-0.2); BASO % 0.9 % (0.0-2.0); EOS # 0.7 K/uL (0.0-0.7); EOS % 5.3 % (0.0-4.0); HEMOGLOBIN 10.3 g/dL (12.0-18.0); LYMPH # 2.1 K/uL (1.0-4.3); LYMPH % 17.2 % (20.0-40.0); MEAN CELL VOLUME 89.5 fl (80.0-94.0); MEAN CORPUSCULAR HEMOGLOBIN 29.9 pg (27.0-31.0); MEAN CORPUSCULAR HGB CONC 33.4 g/dL (33.0-37.0); MEAN PLATELET VOLUME 7.4 fl (7.2-11.7); MONO # 1.5 K/uL (0.0-0.8); NEUT # 8.1 K/uL (1.8-7.0); NEUT % 64.6 % (50.0-75.0); RBC 3.43 Mil/uL (4.40-5.90); RED CELL DISTRIBUTION WIDTH 14.4 % (11.5-14.5); WHITE BLOOD COUNT 12.5 K/uL (4.8-10.8)
[2018-05-16 06:21] LABS: BLOOD UREA NITROGEN 11 mg/dl (9-20); CALCIUM 8.2 mg/dL (8.4-10.2); GFR AFRICAN-AMERICAN > 60; GFR NON-AFRICAN AMERICAN > 60
--- NOTE | 2018-05-16 09:14 | RAD ---
HISTORY: hemoptysis COMPARISON: Portable chest 05/11/[address] 05/07/2018. FINDINGS: LUNGS: No active pulmonary disease. Small calcified granuloma is again seen the right lower lobe laterally. Medial left apical nodule not appreciated in the current exam but seen in prior chest CT 05/07/2018. Please see separate report. PLEURA: No significant pleural effusion identified, no pneumothorax apparent. CARDIOVASCULAR: Cardiomediastinal side appears stable, mildly prominent once again. OSSEOUS STRUCTURES: No significant abnormalities. VISUALIZED UPPER ABDOMEN: Normal. OTHER FINDINGS: None. IMPRESSION: No acute infiltrate, pleural effusion or pneumothorax identified bilaterally.
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
--- NOTE | 2018-05-16 09:48 | CP.PCM.PN ---
Subjective - Date & Time of Evaluation Date of Evaluation: 05/16/18 Time of Evaluation: 09:45 - Subjective Subjective: Patient is seen on rounds in the medical floor. He appears comfortable at present without any coughing or dyspnea. A repeat chest x-ray was performed this morning which showed no pulmonary infiltrates or pleural effusions. Bronchial washings from Wednesday's bronchoscopy thus far show only few polys and rare gram-positive cocci. Vital signs have remained stable and he continues to be afebrile. On exam the trachea is midline. There is no dullness on percussion of the anterior thorax. Breath sounds are well heard bilaterally anteriorly. Few dry rales and sonorous rhonchi are appreciated posteriorly. No audible wheezing or bronchial breathing. Clinically he appears stable from a respiratory standpoint. We'll await final results from bronchoscopy specimens. No further interventions anticipated at this time. Objective - Vital Signs/Intake and Output Vital Signs (last 24 hours): Temp Pulse Resp BP Pulse Ox 97.9 F 76 19 103/64 98 05/16/18 07:55 05/16/18 07:55 05/16/18 07:55 05/16/18 07:55 05/16/18 07:55 Intake and Output: 05/15/18 05/16/18 23:59 11:59 Intake Total 950 Output Total 1500 Balance -550 - Medications Medications: Current Medications Acetaminophen (Tylenol 650 Mg Supp) 650 mg OR Q6 PRN PRN Reason: Fever >100.4 F Calcium Carbonate (Oscal) 500 mg PO DAILY [facility] Last Admin: 05/16/18 09:00 Dose: 500 mg Piperacillin Sod/Tazobactam (Sod 3.375 gm/ Sodium Chloride) 100 mls @ 100 mls/ hr IVPB Q6 KALYANI PRN Reason: Protocol Last Admin: 05/16/18 04:03 Dose: 100 mls/hr Clindamycin Phosphate (Cleocin) 600 mg in 50 mls @ 50 mls/hr IVPB Q8 KALYANI PRN Reason: Protocol Last Admin: 05/16/18 08:56 Dose: 50 mls/hr Ondansetron HCl (Zofran Inj) 4 mg IVP Q4 PRN PRN Reason: Nausea/Vomiting Last Admin: 05/08/18 18:51 Dose: 4 mg Oxycodone/Acetaminophen (Percocet 5/325 Mg Tab) 1 tab PO Q6 PRN PRN Reason: Pain, moderate (4-7) Stop: 05/16/18 16:31 Last Admin: 05/15/18 20:50 Dose: 1 tab Pantoprazole Sodium (Protonix Inj) 40 mg IVP BID KALYANI Last Admin: 05/16/18 08:56 Dose: 40 mg - Labs Labs: 05/16/18 05:50 05/16/18 05:50 PT 13.6 Seconds (9.8-13.1) H 05/13/18 14:45 INR 1.2 (0.9-1.2) 05/13/18 14:45 APTT 26.9 Seconds (25.6-37.1) 05/13/18 14:45
[2018-05-16] MEDS ORDERED: Lactated Ringer's 500 ML IV ONE (11:02)
[2018-05-16] MEDS ORDERED: Etomidate 20 mg/10ml Inj IV ONE (12:10)
[2018-05-16 12:59] VITALS: PULSE 69
[2018-05-16] MEDS: Oxycodone/Acetaminophen 5/325 mg Tab PO PRN (14:48)
[2018-05-16 16:04] VITALS: BP 123/75; RESP 18; TEMP 98.5; O2SAT 98
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
--- NOTE | 2018-05-31 08:42 | PQF ---
PROVIDER RESPONSE TEXT: Aspiration Pneumonia was ruled out after subsequent imaging was found to be negative. REVIEWER QUERY TEXT: Clarification of Clinical Diagnostic Findings Please clarify documentation or clinical relevance for the clinical / diagnostic findings or whether those are insignificant or unable to be further specified. Dr. Carver 05/[address] Garay documented leukocytosis secondary to SIRS/Aspiration Pneu monia, continue antibiotic zosyn and clindamycin. Please specify if after study diagnosis or diagnoses of sirs and aspiraton pneumonia were ruled in or out. The patient's Clinical Indicators include: Leukocytosis. antibiotics zosyn and clindamycin. Query created by: Meghann Schneider on 05/17/2018 2:05 PM Electronically signed by: Nora Carver 05/31/2018 8:38 AM
== END 2018-05-16 16:45 | disposition home or self-care (01) | DRG 982 ==
LOC: H.ER 07:36 → H.ERHOLD 12:19 → H.TEL 13:51 → H.MEDSURG1 05-07 22:29 → OBSVTOIN 05-08 12:29 → H.ICU/CCU 05-08 14:09 → H.MEDSURG1 05-10 13:53
PROVIDERS: ADMIT Family Medicine; ATTEND Family Medicine
PROC: 30233N1 Transfusion of Nonautologous Red Blood Cells into Peripheral Vein, Percutaneous Approach (ICD-10-PCS; 2018-05-08)
PROC: 0DB68ZX Excision of Stomach, Via Natural or Artificial Opening Endoscopic, Diagnostic (ICD-10-PCS; principal; 2018-05-09 13:30)
PROC: 0WCQ8ZZ Extirpation of Matter from Respiratory Tract, Via Natural or Artificial Opening Endoscopic (ICD-10-PCS; 2018-05-13)
PROC: 0BD18ZX Extraction of Trachea, Via Natural or Artificial Opening Endoscopic, Diagnostic (ICD-10-PCS; 2018-05-13)
PROC: 0B978ZX Drainage of Left Main Bronchus, Via Natural or Artificial Opening Endoscopic, Diagnostic (ICD-10-PCS; 2018-05-13)
PROC: 0B938ZX Drainage of Right Main Bronchus, Via Natural or Artificial Opening Endoscopic, Diagnostic (ICD-10-PCS; 2018-05-13)
PROC: 0DB68ZX Excision of Stomach, Via Natural or Artificial Opening Endoscopic, Diagnostic (ICD-10-PCS; 2018-05-16)
DX: K92.0 Hematemesis (principal); I13.0 Hypertensive heart and chronic kidney disease with heart failure and stage 1 through stage 4 chronic kidney disease, or unspecified chronic kidney disease; G82.20 Paraplegia, unspecified; D62 Acute posthemorrhagic anemia; Z93.3 Colostomy status; K26.9 Duodenal ulcer, unspecified as acute or chronic, without hemorrhage or perforation; K25.9 Gastric ulcer, unspecified as acute or chronic, without hemorrhage or perforation; F41.9 Anxiety disorder, unspecified; T17.390A Other foreign object in larynx causing asphyxiation, initial encounter; Z86.73 Personal history of transient ischemic attack (TIA), and cerebral infarction without residual deficits; F03.90 Unspecified dementia, unspecified severity, without behavioral disturbance, psychotic disturbance, mood disturbance, and anxiety; F17.210 Nicotine dependence, cigarettes, uncomplicated; J06.9 Acute upper respiratory infection, unspecified; M94.0 Chondrocostal junction syndrome [Tietze]; I50.9 Heart failure, unspecified; N18.9 Chronic kidney disease, unspecified; K92.1 Melena; E87.6 Hypokalemia

== ENCOUNTER 2018-05-16 22:41 | Emergency (ER) | payer MEDICARE ==
[2018-05-16 22:41] VITALS: BMI 22.9
[2018-05-16 23:08] VITALS: RESP 16; O2SAT 96
[2018-05-17] MEDS ORDERED: Oxycodone/Acetaminophen 5/325 mg Tab PO ONE ×2 (02:00→05:22)
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
[2018-05-17] MEDS ORDERED: Oxycodone/Acetaminophen 5/325 mg Tab ONE (03:35)
--- NOTE | 2018-05-17 06:29 | ED PDOC ---
- ECG O2 Sat by Pulse Oximetry: 96 Medical Decision Making Medical Decision Makin Patient under the direct care of this provider endorsed by MAYE Carbajal pending re -evaluation. CT noted. pt aware of results. 0632 Upon re-evaluation patient notes improvement in symptoms. Patient is stable for discharge home and is advised to follow up with PCP in 1- 2 days. Dx: back pain Scribe Attestation: Documented by Shalini Forrest acting as a scribe for Norma Obregon MD. Scribe Attestation: All medical record entries made by the Scribe were at my direction and personally dictated by me. I have reviewed the chart and agree that the record accurately reflects my personal performance of the history, physical exam, medical decision making, and the department course for this patient. I have also personally directed, reviewed, and agree with the discharge instructions and disposition. Disposition - Clinical Impression Clinical Impression: Back pain - POA Present On Arrival: None - Disposition Referrals: Santi Russ MD [Primary Care Provider] - Disposition: Routine/Home Disposition Time: 06:35 Condition: IMPROVED Additional Instructions: follow up with your doctor in 1-2 days return to the ED with any worsening or concerning symptoms CHAPINCITO MENDEZ, thank you for letting us take care of you today. Your provider was Norma Obregon MD and you were treated for BACK PAIN. The emergency medical care you received today was directed at your acute symptoms. If you were prescribed any medication, please fill it and take as directed. It may take several days for your symptoms to resolve. Return to the Emergency Department if your symptoms worsen, do not improve, or if you have any other problems. Please contact your doctor or call one of the physicians/clinics you have been referred to that are listed on the Patient Visit Information form that is included in your discharge packet. Bring any paperwork you were given at discharge with you along with any medications you are taking to your follow up visit. Our treatment cannot replace ongoing medical care by a primary care provider outside of the emergency department. Thank you for allowing the [facility] team to be part of your care today. If you had an X-Ray or CT scan: A Radiologist will review the ED reading if any change in treatment is needed we will contact you. If you had a blood, urine, or wound culture: It will take several days for the results, if any change in treatment is needed we will contact you. If you had an STI test: It will take 48 hours for the results. Please call after 1 week if you have not heard back. Instructions: Low Back Pain (DC)
[2018-05-17 06:56] VITALS: BP 125/63; PULSE 83; TEMP 98.2
--- NOTE | 2018-05-17 13:08 | CT ---
PROCEDURE: CT Lumbar Spine without contrast HISTORY: low back pain COMPARISON: None. TECHNIQUE: Axial computed tomography images were obtained of the lumbar spine without the use of intravenous contrast. Coronal and sagittal reformatted images were created and reviewed. Radiation dose: Total exam DLP = 239.40 mGy-cm. This CT exam was performed using one or more of the following dose reduction techniques: Automated exposure control, adjustment of the mA and/or kV according to patient size, and/or use of iterative reconstruction technique. FINDINGS: VERTEBRAE: Unremarkable. No fracture. Normal alignment. DISCS/SPINAL CANAL/NEURAL FORAMINA: L1-2: Unremarkable. L2-3: Minimal diffuse disc bulge. No focal herniation. No spinal or foraminal stenosis. L3-4: Mild diffuse disc bulge. No focal herniation. No spinal or foraminal stenosis. L4-5: Diffuse disc bulge. Superimposed right foraminal disc herniation. Mild bilateral neural foraminal stenosis. No central spinal stenosis. L5-S1: Unremarkable. PARASPINAL SOFT TISSUES: 2.3 cm right lower pole renal cortical cyst. Mild degenerative arthritis of right sacroiliac joint. OTHER FINDINGS: None. IMPRESSION: No fracture. No dislocation. Disc bulge L3-4 and L4-5 with superimposed right L4-5 foraminal disc herniation. Mild bilateral foraminal stenosis at L4-5. No central spinal stenosis. Additional minor findings as above. Preliminary interpretation of this examination was reported by [facility] at 05/17/2018 at 3:12 a.m.. There is concurrence of this report with the preliminary interpretation.
== END 2018-05-17 06:57 | disposition home or self-care (01) ==
LOC: H.ER 22:41
DX: M54.5 Low back pain (principal); G82.20 Paraplegia, unspecified; F03.90 Unspecified dementia, unspecified severity, without behavioral disturbance, psychotic disturbance, mood disturbance, and anxiety; F41.9 Anxiety disorder, unspecified; I10 Essential (primary) hypertension; M48.061 Spinal stenosis, lumbar region without neurogenic claudication; Z86.73 Personal history of transient ischemic attack (TIA), and cerebral infarction without residual deficits; M51.26 Other intervertebral disc displacement, lumbar region

== ENCOUNTER 2018-10-02 09:05 | Observation (INO) | payer MEDICARE ==
[2018-10-02] MEDS ORDERED: Sodium Chloride 0.9% 1,000 ML IV STA (09:21)
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
[2018-10-02 10:44] LABS: BASO # 0.1 K/uL (0.0-0.2); EOS # 0.3 K/uL (0.0-0.7); EOS % 3.1 % (0.0-4.0); LYMPH # 2.3 K/uL (1.0-4.3); MEAN CELL VOLUME 81.8 fl (80.0-94.0); MEAN CORPUSCULAR HEMOGLOBIN 26.6 pg (27.0-31.0); MEAN CORPUSCULAR HGB CONC 32.5 g/dL (33.0-37.0); MEAN PLATELET VOLUME 8.5 fl (7.2-11.7); MONO # 0.8 K/uL (0.0-0.8); MONO % 8.5 % (0.0-10.0); NEUT # 6.4 K/uL (1.8-7.0); NEUT % 64.4 % (50.0-75.0); RBC 4.96 Mil/uL (4.40-5.90); RED CELL DISTRIBUTION WIDTH 18.4 % (11.5-14.5)
[2018-10-02 10:46] LABS: ALBUMIN 4.4 g/dL (3.5-5.0); ALT/SGPT 27 U/L (21-72); AST/SGOT 35 U/L (17-59); BLOOD UREA NITROGEN 15 mg/dl (9-20); CALCIUM 9.5 mg/dL (8.4-10.2); GFR NON-AFRICAN AMERICAN > 60
[2018-10-02 10:48] LABS: HEMOGLOBIN 13.2 g/dL (12.0-18.0)
--- NOTE | 2018-10-02 11:30 | RAD ---
Date of service: 10/02/2018 HISTORY: cough COMPARISON: No prior. FINDINGS: LUNGS: No active pulmonary disease. PLEURA: No significant pleural effusion identified, no pneumothorax apparent. CARDIOVASCULAR: No aortic atherosclerotic calcification present. Normal cardiac size. No pulmonary vascular congestion. OSSEOUS STRUCTURES: No significant abnormalities. VISUALIZED UPPER ABDOMEN: Normal. OTHER FINDINGS: None. IMPRESSION: No active disease.
[2018-10-02 12:54] LABS: SQUAMOUS EPITHIAL < 1 /hpf (0-5); URINE BACTERIA OCC (<OCC); URINE BILIRUBIN NEGATIVE (NEGATIVE); URINE BLOOD SMALL (NEGATIVE); URINE CLARITY CLOUDY (Clear); URINE COLOR YELLOW (YELLOW); URINE GLUCOSE (UA) NEG (Normal); URINE LEUKOCYTE ESTERASE SMALL Leu/uL (Negative); URINE PROTEIN 100 mg/dL (NEGATIVE); URINE UROBILINOGEN 0.2-1.0 mg/dL (0.2-1.0)
--- NOTE | 2018-10-02 13:45 | CT ---
Date of service: 10/02/2018 PROCEDURE: CT HEAD WITHOUT CONTRAST. HISTORY: r/o bleed COMPARISON: None available. TECHNIQUE: Axial computed tomography images were obtained through the head/brain without intravenous contrast. Radiation dose: Total exam DLP = 736.15 mGy-cm. This CT exam was performed using one or more of the following dose reduction techniques: Automated exposure control, adjustment of the mA and/or kV according to patient size, and/or use of iterative reconstruction technique. FINDINGS: HEMORRHAGE: No intracranial hemorrhage. BRAIN: No mass effect or edema. No atrophy or chronic microvascular ischemic changes. VENTRICLES: Unremarkable. No hydrocephalus. CALVARIUM: Unremarkable. PARANASAL SINUSES: Unremarkable as visualized. No significant inflammatory changes. MASTOID AIR CELLS: Unremarkable as visualized. No inflammatory changes. OTHER FINDINGS: None. IMPRESSION: Normal CT of the Head.
[2018-10-02 14:15] LABS: VENOUS BLOOD GAS BASE EXCESS -7.9 mmol/L (0.0-2.0); VENOUS BLOOD GAS PCO2 72 mmHg (40-60); VENOUS BLOOD GAS PO2 29 mm/Hg (30-55); VENOUS BLOOD PH 7.11 (7.32-7.43)
[2018-10-02] MEDS ORDERED: cefTRIAXone (Rocephin) 1 gm Inj ONE (14:24)
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
[2018-10-02] MEDS ORDERED: Pantoprazole 40 mg EC Tab PO ONE (15:50)
[2018-10-02] MEDS: Pantoprazole 40 mg EC Tab PO SCH (15:57)
[2018-10-02] MEDS ORDERED: Pneumococcal 23-Valent Vaccine IM ONE (19:35)
[2018-10-02] MEDS: oxyCODONE 10 mg Immediate Release Tab PO PRN (20:46)
--- NOTE | 2018-10-02 21:02 | CARD ---
APPROVED REPORT Date of service: 10/02/2018 EKG Measurement Heart [id number] <Conclusion> Normal sinus rhythm ST & T wave abnormality, consider anterolateral ischemia Abnormal ECG
[2018-10-02] MEDS: Enoxaparin 40 mg Syringe SC SCH (21:48)
[2018-10-03 06:03] LABS: BASO # 0.1 K/uL (0.0-0.2); EOS # 0.4 K/uL (0.0-0.7); EOS % 3.1 % (0.0-4.0); HEMOGLOBIN 12.1 g/dL (12.0-18.0); LYMPH # 2.4 K/uL (1.0-4.3); LYMPH % 19.8 % (20.0-40.0); MEAN CELL VOLUME 81.2 fl (80.0-94.0); MEAN CORPUSCULAR HEMOGLOBIN 26.1 pg (27.0-31.0); MEAN CORPUSCULAR HGB CONC 32.1 g/dL (33.0-37.0); MEAN PLATELET VOLUME 8.3 fl (7.2-11.7); MONO # 1.1 K/uL (0.0-0.8); MONO % 9.4 % (0.0-10.0); NEUT # 7.9 K/uL (1.8-7.0); NEUT % 66.7 % (50.0-75.0); NRBC % 0.1 % (0.0-0.0); RBC 4.64 Mil/uL (4.40-5.90); RED CELL DISTRIBUTION WIDTH 18.7 % (11.5-14.5); WHITE BLOOD COUNT 11.9 K/uL (4.8-10.8)
[2018-10-03 06:18] LABS: BLOOD UREA NITROGEN 13 mg/dl (9-20); CALCIUM 8.8 mg/dL (8.4-10.2); GFR NON-AFRICAN AMERICAN > 60
[2018-10-03] MEDS: oxyCODONE 10 mg Immediate Release Tab PO PRN ×2 (08:51→21:15)
[2018-10-03] MEDS: Enoxaparin 40 mg Syringe SC SCH (08:51)
[2018-10-03] MEDS: Pantoprazole 40 mg EC Tab PO SCH (08:51)
[2018-10-04] MEDS: Enoxaparin 40 mg Syringe SC SCH (09:53)
[2018-10-04] MEDS: Pantoprazole 40 mg EC Tab PO SCH (09:53)
[2018-10-04] MEDS: oxyCODONE 10 mg Immediate Release Tab PO PRN (11:32)
[2018-10-04 12:34] VITALS: PULSE 69
--- NOTE | 2018-10-04 15:22 | CP.PCM.DIS ---
Provider - Provider Date of Admission: 10/02/18 13:54 Attending physician: Santi Russ MD Primary care physician: [facility] PROVIDER Hospital Course - Lab Results Lab Results: Micro Results 10/02/18 10:00 Blood-Venous Blood Culture - Preliminary NO GROWTH AFTER 48 HOURS 10/02/18 10:00 Urine,Kiran Urine Culture - Final Klebsiella Pneumoniae Ssp Pneu Most Recent Lab Values WBC 11.9 K/uL (4.8-10.8) H 10/03/18 04:20 RBC 4.64 Mil/uL (4.40-5.90) 10/03/18 04:20 Hgb 12.1 g/dL (12.0-18.0) 10/03/18 04:20 Hct 37.7 % (35.0-51.0) 10/03/18 04:20 MCV 81.2 fl (80.0-94.0) 10/03/18 04:20 MCH 26.1 pg (27.0-31.0) L 10/03/18 04:20 MCHC 32.1 g/dL (33.0-37.0) L 10/03/18 04:20 RDW 18.7 % (11.5-14.5) H 10/03/18 04:20 Plt Count 449 K/uL (130-400) H 10/03/18 04:20 MPV 8.3 fl (7.2-11.7) 10/03/18 04:20 Neut % (Auto) 66.7 % (50.0-75.0) 10/03/18 04:20 Lymph % (Auto) 19.8 % (20.0-40.0) L 10/03/18 04:20 [place] % (Auto) 9.4 % (0.0-10.0) 10/03/18 04:20 Eos % (Auto) 3.1 % (0.0-4.0) 10/03/18 04:20 Baso % (Auto) 1.0 % (0.0-2.0) 10/03/18 04:20 Neut # (Auto) 7.9 K/uL (1.8-7.0) H 10/03/18 04:20 Lymph # (Auto) 2.4 K/uL (1.0-4.3) 10/03/18 04:20 [place] # (Auto) 1.1 K/uL (0.0-0.8) H 10/03/18 04:20 Eos # (Auto) 0.4 K/uL (0.0-0.7) 10/03/18 04:20 Baso # (Auto) 0.1 K/uL (0.0-0.2) 10/03/18 04:20 pO2 29 mm/Hg (30-55) L 10/02/18 10:28 VBG pH 7.11 (7.32-7.43) L* 10/02/18 10:28 VBG pCO2 72 mmHg (40-60) H* 10/02/18 10:28 VBG HCO3 17.3 mmol/L 10/02/18 10:28 VBG Total CO2 25.1 mmol/L (22-28) 10/02/18 10:28 VBG O2 Sat (Calc) 44.5 % (40-65) 10/02/18 10:28 VBG Base Excess -7.9 mmol/L (0.0-2.0) L 10/02/18 10:28 Sodium 121.0 mmol/L (132-148) L 10/02/18 10:28 Chloride 101.0 mmol/L (98-107) 10/02/18 10:28 Glucose 106 mg/dL (75-110) 10/02/18 10:28 Lactate 2.2 mmol/L (0.7-2.1) H 10/02/18 10:28 FiO2 21.0 % 10/02/18 10:28 Blood Gas Comments Lac=2.2 10/02/18 10:28 Crit Value Called To lissette Arteaga 10/02/18 10:28 Crit Value Called By 22 10/02/18 10:28 Crit Value Read Back Y 10/02/18 10:28 Blood Gas Notified Time 1039 10/02/18 10:28 Sodium 140 mmol/l (132-148) 10/03/18 04:20 Potassium 3.9 MMOL/L (3.6-5.0) 10/03/18 04:20 Chloride 104 mmol/L (98-107) 10/03/18 04:20 Carbon Dioxide 27 mmol/L (22-30) 10/03/18 04:20 Anion Gap 13 (10-20) 10/03/18 04:20 BUN 13 mg/dl (9-20) 10/03/18 04:20 Creatinine 0.7 mg/dl (0.8-1.5) L 10/03/18 04:20 Est GFR ( Amer) > 60 10/03/18 04:20 Est GFR (Non-Af Amer) > 60 10/03/18 04:20 POC Glucose (mg/dL) 105 mg/dL (65-110) 10/02/18 09:48 Random Glucose 118 mg/dL (75-110) H 10/03/18 04:20 Lactic Acid 0.9 MMOL/L (0.7-2.1) 10/03/18 04:20 Calcium 8.8 mg/dL (8.4-10.2) 10/03/18 04:20 Total Bilirubin 0.4 mg/dl (0.2-1.3) 10/02/18 10:00 AST 35 U/L (17-59) 10/02/18 10:00 ALT 27 U/L (21-72) 10/02/18 10:00 Alkaline Phosphatase 121 U/L (38-126) 10/02/18 10:00 Total Protein 8.8 G/DL (6.3-8.2) H 10/02/18 10:00 Albumin 4.4 g/dL (3.5-5.0) 10/02/18 10:00 Globulin 4.4 gm/dL (2.2-3.9) H 10/02/18 10:00 Albumin/Globulin Ratio 1.0 (1.0-2.1) 10/02/18 10:00 Urine Color Yellow (YELLOW) 10/02/18 12:20 Urine Clarity Cloudy (Clear) 10/02/18 12:20 Urine pH 9.0 (5.0-8.0) 10/02/18 12:20 Ur Specific [place] 1.016 (1.003-1.030) 10/02/18 12:20 Urine Protein 100 mg/dL (NEGATIVE) 10/02/18 12:20 Urine Glucose (UA) Neg mg/dL (Normal) 10/02/18 12:20 Urine Ketones Negative mg/dL (NEGATIVE) 10/02/18 12:20 Urine Blood Small (NEGATIVE) 10/02/18 12:20 Urine Nitrate Positive (NEGATIVE) H 10/02/18 12:20 Urine Bilirubin Negative (NEGATIVE) 10/02/18 12:20 Urine Urobilinogen 0.2-1.0 mg/dL (0.2-1.0) 10/02/18 12:20 Ur Leukocyte Esterase Small [place]/uL (Negative) 10/02/18 12:20 Urine RBC (Auto) 2 /hpf (0-3) 10/02/18 12:20 Urine Microscopic WBC 15 /hpf (0-5) H 10/02/18 12:20 Ur Squamous Epith Cells < 1 /hpf (0-5) 10/02/18 12:20 Urine Bacteria Occ (<OCC) H 10/02/18 12:20 C. difficile Ag & Toxin Negative (NEGATIVE) 10/02/18 12:20 Discharge Exam - Head Exam Head Exam: ATRAUMATIC, NORMOCEPHALIC Discharge Plan - Discharge Medications Prescriptions: Nitrofurantoin Macrocrystals [Macrobid] 100 mg PO Q12 #14 cap - Follow Up Plan Condition: FAIR Disposition: HOME/ ROUTINE Instructions: Urinary Tract Infection, Adult (DC), Altered Mental Status (DC) Referrals: Santi Russ MD [Staff Provider] -
[2018-10-04 15:55] VITALS: BP 122/72; RESP 17; TEMP 98.3; O2SAT 97
== END 2018-10-04 20:20 | disposition home health service (06) ==
LOC: H.ER 09:05 → EDBD 09:05 → H.ERHOLD 13:54 → H.TEL 16:39
PROVIDERS: ADMIT Family Medicine; ATTEND Family Medicine
DX: N39.0 Urinary tract infection, site not specified (principal); B96.1 Klebsiella pneumoniae [K. pneumoniae] as the cause of diseases classified elsewhere; F03.90 Unspecified dementia, unspecified severity, without behavioral disturbance, psychotic disturbance, mood disturbance, and anxiety; G82.20 Paraplegia, unspecified; I69.320 Aphasia following cerebral infarction; R53.1 Weakness; I10 Essential (primary) hypertension; F41.9 Anxiety disorder, unspecified; F17.210 Nicotine dependence, cigarettes, uncomplicated; Z93.3 Colostomy status; Z87.828 Personal history of other (healed) physical injury and trauma
CPT/HCPCS: 36415; 70450; 71045; 80048; 80053; 81003; 82803; 82948; 83605; 85025; 87040; 87086; 87181; 87230; 93005; 99285; G0378; J0696; J1650; J7030

== ENCOUNTER 2018-11-25 07:14 | Observation (INO) | payer MEDICARE ==
[2018-11-25 07:24] VITALS: O2SAT 99
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
[2018-11-25 08:20] LABS: BASO # 0.1 K/uL (0.0-0.2); BASO % 0.7 % (0.0-2.0); EOS # 0.5 K/uL (0.0-0.7); EOS % 5.2 % (0.0-4.0); LYMPH # 2.4 K/uL (1.0-4.3); LYMPH % 22.9 % (20.0-40.0); MEAN CELL VOLUME 82.9 fl (80.0-94.0); MEAN CORPUSCULAR HEMOGLOBIN 26.6 pg (27.0-31.0); MEAN PLATELET VOLUME 8.6 fl (7.2-11.7); MONO # 0.9 K/uL (0.0-0.8); MONO % 8.9 % (0.0-10.0); NEUT # 6.5 K/uL (1.8-7.0); NEUT % 62.3 % (50.0-75.0); RBC 4.52 Mil/uL (4.40-5.90); RED CELL DISTRIBUTION WIDTH 17.9 % (11.5-14.5); WHITE BLOOD COUNT 10.5 K/uL (4.8-10.8)
[2018-11-25 08:45] LABS: OPIATES, UR NEGATIVE (NEGATIVE)
[2018-11-25 08:52] LABS: BARBITURATES, UR NEGATIVE (NEGATIVE); BENZODIAZEPINES, UR NEGATIVE (NEGATIVE); PHENCYCLIDINE, UR NEGATIVE (NEGATIVE)
--- NOTE | 2018-11-25 09:24 | CT ---
Date of service: 11/25/2018 PROCEDURE: CT HEAD WITHOUT CONTRAST. HISTORY: AMS COMPARISON: None available. TECHNIQUE: Axial computed tomography images were obtained through the head/brain without intravenous contrast. Radiation dose: Total exam DLP = 746.49 mGy-cm. This CT exam was performed using one or more of the following dose reduction techniques: Automated exposure control, adjustment of the mA and/or kV according to patient size, and/or use of iterative reconstruction technique. FINDINGS: HEMORRHAGE: No intracranial hemorrhage. BRAIN: Suspect minimal chronic periventricular white matter ischemic changes. Few tiny chronic bilateral basal nuclei lacunar type infarcts also felt present. Moderate generalized volume loss. No obvious parenchymal nor extra-axial masses or collections seen on this noncontrast exam. Mild vascular calcifications both carotid siphons. VENTRICLES: No obstructive hydrocephalus. CALVARIUM: Calvarium intact. PARANASAL SINUSES: Unremarkable as visualized. No significant inflammatory changes. MASTOID AIR CELLS: Paranasal sinuses are clear. Prominent large left-sided keith bullosa. Sclerotic underpneumatized appearing mastoid sinuses unchanged.. OTHER FINDINGS: None. IMPRESSION: No acute intracranial hemorrhage. Suspect minimal chronic periventricular white matter ischemic changes and few chronic bilateral basal nuclei lacunar type infarcts. Moderate generalized volume loss.
[2018-11-25 09:26] LABS: ALBUMIN 3.6 g/dL (3.5-5.0); ALT/SGPT 7 U/L (21-72); AST/SGOT 26 U/L (17-59); BLOOD UREA NITROGEN 19 mg/dl (9-20); CALCIUM 8.5 mg/dL (8.4-10.2); GFR NON-AFRICAN AMERICAN > 60; LIPASE 80 U/L (23-300)
[2018-11-25 10:16] LABS: INR 1.1; PROTHROMBIN TIME 12.8 Seconds (9.8-13.1)
[2018-11-25 10:18] LABS: PARTIAL THROMBOPLASTIN TIME 31.8 Seconds (25.6-37.1)
[2018-11-25] MEDS ORDERED: Sodium Chloride 0.9% 50 ML IV ONE ×2 (10:54→11:32)
[2018-11-25] MEDS ORDERED: Iohexol 300 100 ML IJ ONE ×2 (10:54→11:31)
--- NOTE | 2018-11-25 12:47 | CT ---
Date of service: 11/25/2018 PROCEDURE: CT Abdomen and Pelvis with contrast HISTORY: Abd pain COMPARISON: None. TECHNIQUE: Contrast dose: 95 mL Omnipaque 300 Radiation dose: Total exam DLP = 291.11 mGy-cm. This CT exam was performed using one or more of the following dose reduction techniques: Automated exposure control, adjustment of the mA and/or kV according to patient size, and/or use of iterative reconstruction technique. FINDINGS: LOWER THORAX: Calcified granuloma noted in the right lower lobe. No infiltrate/effusion. LIVER: Unremarkable. No gross lesion or ductal dilatation. GALLBLADDER AND BILE DUCTS: Unremarkable. PANCREAS: Unremarkable. No gross lesion or ductal dilatation. SPLEEN: Unremarkable. ADRENALS: Unremarkable. No mass. KIDNEYS AND URETERS: Right lower pole renal cortical cyst, 2.5 cm diameter. Fifteen Hounsfield units attenuation. No renal calculus or hydronephrosis. VASCULATURE: No evidence of abdominal aortic aneurysm. Extensive atherosclerotic calcification of the abdominal aorta is noted. BOWEL: Diffuse moderate mural thickening of the stomach consistent with nonspecific gastritis. There is a left lower quadrant colostomy. There is probable ileocolonic anastomosis in the mid left abdomen. There is diverticulosis of the descending and sigmoid colon. There is no evidence of diverticulitis. There is no bowel obstruction. APPENDIX: Unremarkable PERITONEUM: Unremarkable. No free fluid. No free air. LYMPH NODES: Unremarkable. No enlarged lymph nodes. BLADDER: Percutaneous cystostomy noted with balloon inflated in bladder. Bladder wall diffusely thickened. Bladder poorly distended. Possible chronic outlet obstruction. Rule out cystitis or neoplasm. REPRODUCTIVE: Mildly enlarged prostate. BONES: Healed bilateral fractures of the superior and inferior pubic rami. OTHER FINDINGS: None. IMPRESSION: Nonspecific diffuse gastritis. Left lower quadrant colostomy with ileocolic anastomosis. Percutaneous cystostomy. Diffuse bladder thickening. Chronic outlet obstruction versus cystitis versus neoplasm. Minor findings as above.
--- NOTE | 2018-11-25 12:53 | RAD ---
Date of service: 11/25/2018 HISTORY: Abd pain COMPARISON: Comparison chest dated 10/02/2018 FINDINGS: LUNGS: There appears to be some minor left basilar. PLEURA: No significant pleural effusion identified, no pneumothorax apparent. CARDIOVASCULAR: Mild aortic atherosclerotic calcification present. Normal cardiac size. No pulmonary vascular congestion. OSSEOUS STRUCTURES: Mild multilevel degenerative spondylosis of the thoracic spine with levoscoliosis centered at the lower thoracic region. VISUALIZED UPPER ABDOMEN: Normal. OTHER FINDINGS: None. Atelectasis and or scarring IMPRESSION: Mild left basilar atelectasis or scarring
[2018-11-25] MEDS ORDERED: cefTRIAXone (Rocephin) 1 gm Inj ONE (13:51)
[2018-11-25 14:46] LABS: URINE BILIRUBIN NEGATIVE (NEGATIVE); URINE BLOOD SMALL (NEGATIVE); URINE CLARITY CLOUDY (Clear); URINE COLOR YELLOW (YELLOW); URINE GLUCOSE (UA) NEG (NEGATIVE); URINE PROTEIN NEGATIVE (NEGATIVE); URINE UROBILINOGEN 0.2-1.0 mg/dL (0.2-1.0)
[2018-11-25 14:47] LABS: URINE BACTERIA RARE (<OCC)
[2018-11-25 14:48] LABS: URINE LEUKOCYTE ESTERASE MODERATE Leu/uL (Negative)
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
[2018-11-25 15:32] VITALS: BP 135/80; PULSE 75; RESP 16; TEMP 97.8
--- NOTE | 2018-11-25 20:29 | CARD ---
APPROVED REPORT Date of service: 11/25/2018 EKG Measurement Heart [id number] <Conclusion> Sinus rhythm with occasional premature ventricular complexes Low voltage QRS Septal infarct, age undetermined T wave abnormality, consider anterior ischemia Abnormal ECG
== END 2018-11-25 16:10 | disposition home or self-care (01) ==
LOC: H.ER 07:14 → H.ERHOLD 13:55
DX: N39.0 Urinary tract infection, site not specified (principal); R10.32 Left lower quadrant pain; K29.70 Gastritis, unspecified, without bleeding; F03.90 Unspecified dementia, unspecified severity, without behavioral disturbance, psychotic disturbance, mood disturbance, and anxiety; I10 Essential (primary) hypertension; J45.909 Unspecified asthma, uncomplicated; F41.9 Anxiety disorder, unspecified; F17.210 Nicotine dependence, cigarettes, uncomplicated; Z86.73 Personal history of transient ischemic attack (TIA), and cerebral infarction without residual deficits; Z87.440 Personal history of urinary (tract) infections; Z93.3 Colostomy status
CPT/HCPCS: 70450; 71045; 74177; 80053; 81003; 82948; 83690; 84484; 85025; 85610; 85730; 87086; 93005; 96365; 99284; G0378; G0480; J0696; Q9967

== ENCOUNTER 2019-02-11 11:51 | Emergency (ER) | payer MEDICARE ==
[2019-02-11 11:54] VITALS: RESP 18
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
--- NOTE | 2019-02-11 14:38 | RAD ---
Date of service: 02/11/2019 PROCEDURE: Left Ankle Radiographs. HISTORY: Fall COMPARISON: None available. FINDINGS: BONES: Three views of the left ankle were performed for trauma and ankle pain. No prior studies are available for comparison. Mild soft tissue swelling is identified. There is evidence of prior left ankle ORIF with 2 cortical screws in the medial malleolus and single cortical screw in the left fibula. No appreciable acute fracture is noted. Osteopenia is appreciated which may be related to disuse. No ankle mortise widening is seen. Subtalar joint is unremarkable. JOINTS: See above. SOFT TISSUES: See above. OTHER FINDINGS: None. IMPRESSION: Status post ORIF left ankle. Nonspecific soft tissue swelling. Diffuse osteopenia limits evaluation for fracture. No appreciable acute fracture noted.
--- NOTE | 2019-02-11 14:39 | RAD ---
Date of service: 02/11/2019 PROCEDURE: Left Foot Radiographs. HISTORY: Fall COMPARISON: None. FINDINGS: BONES: Three views of the left foot were performed for left foot pain and trauma. Diffuse osteopenia limits evaluation. There is once again evidence of prior ORIF of the left ankle seen on the ankle x-ray of the same day. Please see that report. No appreciable acute fracture or periosteal reaction is seen. No abnormal widening of the proximal 1st and 2nd tarsal metatarsal joint is seen. Mild degenerative changes are identified. Subtalar joint is unremarkable. Calcaneus appears grossly intact. JOINTS: See above. SOFT TISSUES: See above. OTHER FINDINGS: None. IMPRESSION: Diffuse osteopenia limits evaluation. No appreciable acute fracture.
[2019-02-11 17:09] VITALS: BP 128/65; PULSE 57; TEMP 98.8; O2SAT 98
== END 2019-02-11 17:11 | disposition home or self-care (01) ==
LOC: H.ER 11:51
DX: S99.922A Unspecified injury of left foot, initial encounter (principal); F03.90 Unspecified dementia, unspecified severity, without behavioral disturbance, psychotic disturbance, mood disturbance, and anxiety; I10 Essential (primary) hypertension; J45.909 Unspecified asthma, uncomplicated; Z86.73 Personal history of transient ischemic attack (TIA), and cerebral infarction without residual deficits; W05.0XXA Fall from non-moving wheelchair, initial encounter

== ENCOUNTER 2019-03-19 19:53 | Emergency (ER) | payer MEDICARE ==
[2019-03-19 20:00] VITALS: RESP 16; O2SAT 99
[2019-03-19 21:34] LABS: BASO # 0.1 K/uL (0.0-0.2); BASO % 0.8 % (0.0-2.0); EOS # 0.3 K/uL (0.0-0.7); EOS % 3.4 % (0.0-4.0); HEMOGLOBIN 11.2 g/dL (12.0-18.0); LYMPH # 1.9 K/uL (1.0-4.3); LYMPH % 20.1 % (20.0-40.0); MEAN CELL VOLUME 83.6 fl (80.0-94.0); MEAN CORPUSCULAR HEMOGLOBIN 27.4 pg (27.0-31.0); MEAN CORPUSCULAR HGB CONC 32.8 g/dL (33.0-37.0); MONO # 0.9 K/uL (0.0-0.8); MONO % 9.4 % (0.0-10.0); NEUT # 6.3 K/uL (1.8-7.0); NEUT % 66.3 % (50.0-75.0); NRBC % 0.2 % (0.0-0.0); RBC 4.07 Mil/uL (4.40-5.90); WHITE BLOOD COUNT 9.6 K/uL (4.8-10.8)
[2019-03-19 21:37] LABS: INR 1.2; PROTHROMBIN TIME 13.7 Seconds (9.8-13.1)
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
[2019-03-19 21:48] LABS: ALB/GLOB RATIO 1.1 (1.0-2.1); ALT/SGPT 21 U/L (21-72); AST/SGOT 25 U/L (17-59); BLOOD UREA NITROGEN 18 mg/dl (9-20); GFR NON-AFRICAN AMERICAN > 60; LIPASE 79 U/L (23-300)
[2019-03-19 22:17] LABS: SQUAMOUS EPITHIAL < 1 /hpf (0-5); URINE BACTERIA RARE (<OCC); URINE BILIRUBIN NEGATIVE (NEGATIVE); URINE BLOOD NEGATIVE (NEGATIVE); URINE CALCIUM OXALATE CRYSTALS FEW /hpf (<OCC); URINE CLARITY TURBID (Clear); URINE COLOR YELLOW (YELLOW); URINE GLUCOSE (UA) NEG (NEGATIVE); URINE LEUKOCYTE ESTERASE LARGE Leu/uL (Negative); URINE PROTEIN 30 mg/dL (NEGATIVE); URINE UROBILINOGEN 0.2-1.0 mg/dL (0.2-1.0)
[2019-03-19] MEDS ORDERED: Potassium Chloride 20 mEq ER Tab PO STA (22:30)
[2019-03-19] MEDS ORDERED: Potassium Chloride 20 mEq ER Tab PO ONE (23:26)
[2019-03-19 23:44] VITALS: BP 125/95; PULSE 86; TEMP 97.9
--- NOTE | 2019-03-20 09:28 | CARD ---
APPROVED REPORT Date of service: 03/19/2019 EKG Measurement Heart [id number] <Conclusion> Normal sinus rhythm Septal infarct, age undetermined T wave abnormality, consider lateral ischemia Abnormal ECG
--- NOTE | 2019-03-20 10:33 | RAD ---
Date of service: 03/19/2019 HISTORY: weakness COMPARISON: 11/25/2018 FINDINGS: LUNGS: No active pulmonary disease. PLEURA: No significant pleural effusion identified, no pneumothorax apparent. CARDIOVASCULAR: No atherosclerotic calcification present Normal. OSSEOUS STRUCTURES: No significant abnormalities. Evidence of old presumed posttraumatic left rib fractures. VISUALIZED UPPER ABDOMEN: Normal. OTHER FINDINGS: None. IMPRESSION: No active disease. No significant interval change compared to the prior examination(s).
== END 2019-03-19 23:43 | disposition home or self-care (01) ==
LOC: EDBD → H.ER 19:53
DX: R53.1 Weakness (principal); N39.0 Urinary tract infection, site not specified; F03.90 Unspecified dementia, unspecified severity, without behavioral disturbance, psychotic disturbance, mood disturbance, and anxiety; F41.9 Anxiety disorder, unspecified; I10 Essential (primary) hypertension; Z86.73 Personal history of transient ischemic attack (TIA), and cerebral infarction without residual deficits

== ENCOUNTER 2019-03-25 23:38 | Observation (INO) | payer MEDICARE ==
[2019-03-26 00:46] LABS: VENOUS BLOOD GAS BASE EXCESS 9.9 mmol/L (0.0-2.0); VENOUS BLOOD GAS PCO2 53 mmHg (40-60); VENOUS BLOOD GAS PO2 36 mm/Hg (30-55); VENOUS BLOOD PH 7.44 (7.32-7.43)
[2019-03-26 00:51] LABS: BASO % 0.4 % (0.0-2.0); EOS # 0.2 K/uL (0.0-0.7); EOS % 2.1 % (0.0-4.0); HEMOGLOBIN 11.6 g/dL (12.0-18.0); LYMPH # 1.5 K/uL (1.0-4.3); LYMPH % 14.9 % (20.0-40.0); MEAN CELL VOLUME 83.2 fl (80.0-94.0); MEAN CORPUSCULAR HEMOGLOBIN 27.8 pg (27.0-31.0); MEAN CORPUSCULAR HGB CONC 33.5 g/dL (33.0-37.0); MONO # 0.7 K/uL (0.0-0.8); MONO % 6.5 % (0.0-10.0); NEUT # 7.9 K/uL (1.8-7.0); NEUT % 76.1 % (50.0-75.0); NRBC % 0.1 % (0.0-0.0); RBC 4.18 Mil/uL (4.40-5.90); RED CELL DISTRIBUTION WIDTH 17.5 % (11.5-14.5); WHITE BLOOD COUNT 10.4 K/uL (4.8-10.8)
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
[2019-03-26 01:04] LABS: ALB/GLOB RATIO 1.1 (1.0-2.1); ALBUMIN 3.8 g/dL (3.5-5.0); ALT/SGPT 34 U/L (21-72); AST/SGOT 58 U/L (17-59); BLOOD UREA NITROGEN 18 mg/dl (9-20); CALCIUM 9.4 mg/dL (8.4-10.2); GFR NON-AFRICAN AMERICAN > 60; LIPASE 47 U/L (23-300)
[2019-03-26 01:09] LABS: INR 1.2; PROTHROMBIN TIME 13.7 Seconds (9.8-13.1)
[2019-03-26 01:12] LABS: PARTIAL THROMBOPLASTIN TIME 29.6 Seconds (25.6-37.1)
[2019-03-26 02:34] LABS: URINE BACTERIA FEW (<OCC); URINE BILIRUBIN NEGATIVE (NEGATIVE); URINE BLOOD NEGATIVE (NEGATIVE); URINE CLARITY CLOUDY (Clear); URINE COLOR YELLOW (YELLOW); URINE GLUCOSE (UA) NEG (NEGATIVE); URINE LEUKOCYTE ESTERASE LARGE Leu/uL (Negative); URINE PROTEIN 100 mg/dL (NEGATIVE); URINE UROBILINOGEN 0.2-1.0 mg/dL (0.2-1.0)
[2019-03-26 02:36] LABS: URINE AMORPHOUS SEDIMENT MODERATE /ul (<OCC)
[2019-03-26] MEDS ORDERED: Sodium Chloride 0.9% 50 ML IV ONE (03:09)
[2019-03-26] MEDS ORDERED: Iodixanol 320 MG/ML 100 ML BOTTLE IV ONE (03:09)
[2019-03-26] MEDS ORDERED: metroNIDAZOLE 500mg/100ml NS IVPB STA (05:42)
[2019-03-26] MEDS ORDERED: Ciprofloxacin 400mg/200ml D5W 400 MG/200 ML BAG IVPB STA (05:46)
[2019-03-26] MEDS ORDERED: metroNIDAZOLE 500mg/100ml NS 100 ML IVPB STA (05:53)
[2019-03-26] MEDS ORDERED: Ciprofloxacin 400mg/200ml D5W 400 MG/200 ML BAG IVPB ONE ×2 (06:16→06:24)
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
[2019-03-26] MEDS ORDERED: metroNIDAZOLE 500mg/100ml NS 100 ML IVPB ONE (07:38)
[2019-03-26] MEDS: Sodium Chloride 0.9% 1,000 ML IV SCH ×2 (07:40→19:05)
--- NOTE | 2019-03-26 13:22 | CT ---
Date of service: 03/26/2019 PROCEDURE: CT Abdomen and Pelvis with contrast HISTORY: diffuse abdominal pain COMPARISON: 11/25/2018 TECHNIQUE: Contrast dose: 90 mL Visipaque 320 Radiation dose: Total exam DLP = 200.6 mGy-cm. This CT exam was performed using one or more of the following dose reduction techniques: Automated exposure control, adjustment of the mA and/or kV according to patient size, and/or use of iterative reconstruction technique. FINDINGS: LOWER THORAX: Probable subsegmental atelectasis lingular segment left upper lobe. LIVER: Unremarkable. No gross lesion or ductal dilatation. GALLBLADDER AND BILE DUCTS: Unremarkable. PANCREAS: Unremarkable. No gross lesion or ductal dilatation. SPLEEN: Unremarkable. ADRENALS: Unremarkable. No mass. KIDNEYS AND URETERS: 2.4 cm right lower pole renal cortical cyst. No other mass. No calculus or hydronephrosis. VASCULATURE: Unremarkable. No aortic aneurysm. There is atherosclerotic calcification of the abdominal aorta. BOWEL: Left lower quadrant colostomy. Probable ileocolic anastomosis mid left abdomen. No bowel obstruction. Descending/sigmoid diverticulosis. No evidence of diverticulitis. APPENDIX: Not identified. PERITONEUM: Unremarkable. No free fluid. No free air. LYMPH NODES: Unremarkable. No enlarged lymph nodes. BLADDER: Suprapubic cystostomy. Poorly distended. Thickened bladder wall common nonspecific. Small amount of gas within bladder lumen. REPRODUCTIVE: Unremarkable prostate. BONES: Multiple old healed pelvic fractures. No evidence of acute fracture. OTHER FINDINGS: None. IMPRESSION: No acute abnormality. Left lower quadrant colostomy. Sigmoid/descending diverticulosis. No diverticulitis. Ileocolic anastomosis. Suprapubic cystostomy with thickened bladder wall common nonspecific. Consider cystitis. Additional nonacute findings as above. The preliminary findings for this examination were reported by [facility] at time. There is discordance of this report with the preliminary findings. There is no evidence of gastroenteritis on this examination.
--- NOTE | 2019-03-26 14:21 | RAD ---
Date of service: 03/26/2019 HISTORY: Possible admission COMPARISON: Comparison chest 03/19/2019. Comparison also made with CT chest dated 05/07/2018. TECHNIQUE: 1 view obtained. FINDINGS: LUNGS: Redemonstrated is a large calcified granuloma left lung apex. The minor bibasilar atelectasis. PLEURA: No significant pleural effusion identified, no pneumothorax apparent. CARDIOVASCULAR: Minor aortic atherosclerotic calcification present. Normal cardiac size. No pulmonary vascular congestion. OSSEOUS STRUCTURES: No significant abnormalities. VISUALIZED UPPER ABDOMEN: Normal. OTHER FINDINGS: None. IMPRESSION: Redemonstrated is a large calcified granuloma left lung apex. The minor bibasilar atelectasis.
--- NOTE | 2019-03-26 15:24 | CARD ---
APPROVED REPORT Date of service: 03/26/2019 EKG Measurement Heart [id number] <Conclusion> Normal sinus rhythm Anteroseptal infarct, age undetermined Abnormal ECG
[2019-03-26] MEDS: levoFLOXacin 500 mg in D5W 500 MG/100 ML BAG IVPB SCH (16:51)
[2019-03-26] MEDS: metroNIDAZOLE 500mg/100ml NS 100 ML IVPB SCH (18:00)
[2019-03-26] MEDS ORDERED: Ciprofloxacin 400mg/200ml D5W 400 MG/200 ML BAG IVPB SCH (21:00)
[2019-03-27] MEDS: metroNIDAZOLE 500mg/100ml NS 100 ML IVPB SCH ×4 (00:31→17:02)
[2019-03-27] MEDS: Sodium Chloride 0.9% 1,000 ML IV SCH ×2 (01:44→04:45)
[2019-03-27 06:58] LABS: BASO # 0.1 K/uL (0.0-0.2); BASO % 0.7 % (0.0-2.0); EOS # 0.2 K/uL (0.0-0.7); EOS % 2.1 % (0.0-4.0); HEMOGLOBIN 10.9 g/dL (12.0-18.0); LYMPH # 1.7 K/uL (1.0-4.3); LYMPH % 18.4 % (20.0-40.0); MEAN CELL VOLUME 83.9 fl (80.0-94.0); MEAN CORPUSCULAR HEMOGLOBIN 27.6 pg (27.0-31.0); MEAN CORPUSCULAR HGB CONC 32.9 g/dL (33.0-37.0); MEAN PLATELET VOLUME 8.4 fl (7.2-11.7); MONO # 0.9 K/uL (0.0-0.8); MONO % 9.3 % (0.0-10.0); NEUT # 6.6 K/uL (1.8-7.0); NEUT % 69.5 % (50.0-75.0); NRBC % 0.1 % (0.0-0.0); RBC 3.96 Mil/uL (4.40-5.90); RED CELL DISTRIBUTION WIDTH 17.5 % (11.5-14.5); WHITE BLOOD COUNT 9.5 K/uL (4.8-10.8)
[2019-03-27 07:01] LABS: BLOOD UREA NITROGEN 8 mg/dl (9-20); CALCIUM 7.8 mg/dL (8.4-10.2); GFR NON-AFRICAN AMERICAN > 60
[2019-03-27] MEDS ORDERED: Potassium Chloride 20 mEq ER Tab PO ONE (07:30)
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
[2019-03-27] MEDS: Potassium Chl 20 mEq in D5-NS 1,000 ML IV SCH ×2 (13:28→20:29)
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
[2019-03-27] MEDS: levoFLOXacin 500 mg in D5W 500 MG/100 ML BAG IVPB SCH (16:59)
[2019-03-28] MEDS: metroNIDAZOLE 500mg/100ml NS 100 ML IVPB SCH ×2 (01:28→08:52)
[2019-03-28] MEDS: Potassium Chl 20 mEq in D5-NS 1,000 ML IV SCH (01:29)
[2019-03-28 01:46] VITALS: RESP 18
[2019-03-28 06:49] LABS: HEMOGLOBIN 11.6 g/dL (12.0-18.0); MEAN CELL VOLUME 84.3 fl (80.0-94.0); MEAN CORPUSCULAR HEMOGLOBIN 27.2 pg (27.0-31.0); MEAN CORPUSCULAR HGB CONC 32.3 g/dL (33.0-37.0); RBC 4.28 Mil/uL (4.40-5.90); RED CELL DISTRIBUTION WIDTH 17.7 % (11.5-14.5); WHITE BLOOD COUNT 12.3 K/uL (4.8-10.8)
[2019-03-28 06:59] LABS: BLOOD UREA NITROGEN 6 mg/dl (9-20); GFR NON-AFRICAN AMERICAN > 60
[2019-03-28 07:00] LABS: CALCIUM 8.2 mg/dL (8.4-10.2)
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
[2019-03-28 08:22] VITALS: BP 136/74; PULSE 65; TEMP 97.6; O2SAT 98
[2019-03-28] MEDS ORDERED: Calcium-Vit D 250 mg-125 Units Tab UD PO SCH (09:00)
== END 2019-03-28 13:51 | disposition home health service (06) ==
LOC: H.ER 23:38 → EDBD 23:38 → INTOOBSV 03-26 05:47 → H.ERHOLD 03-26 05:47 → H.MEDSURG1 03-26 09:09
PROVIDERS: ADMIT Internal Medicine; ATTEND Internal Medicine
DX: K52.9 Noninfective gastroenteritis and colitis, unspecified (principal); N39.0 Urinary tract infection, site not specified; B95.7 Other staphylococcus as the cause of diseases classified elsewhere; G82.20 Paraplegia, unspecified; F03.90 Unspecified dementia, unspecified severity, without behavioral disturbance, psychotic disturbance, mood disturbance, and anxiety; Z93.3 Colostomy status; I10 Essential (primary) hypertension; J45.909 Unspecified asthma, uncomplicated; F41.9 Anxiety disorder, unspecified; F17.210 Nicotine dependence, cigarettes, uncomplicated; Z86.73 Personal history of transient ischemic attack (TIA), and cerebral infarction without residual deficits; Z87.828 Personal history of other (healed) physical injury and trauma
CPT/HCPCS: 36415; 71045; 74177; 80048; 80053; 81003; 82803; 83690; 83735; 84100; 85025; 85027; 85610; 85730; 86850; 86900; 87040; 87045; 87086; 87177; 87209; 89055; 93005; 96365; 97162; 99285; G0378; G8978; G8979; J0744; J7030; Q9967